=== PATIENT | male | born 1990 | race African-American/Black ===

== ENCOUNTER 2016-10-10 05:24 | Emergency (ER) | payer OTHER ==
[~2016-10-10] VITALS: Ht 177.8 cm; Wt 90.0 kg
[~2016-10-10 05:24] MED LIST: LITH450T PO; SERO200T PO
[2016-10-10 05:30] VITALS: BP 148/78; PULSE 98; RESP 18; TEMP 98; O2SAT 95
[2016-10-10] MEDS ORDERED: FLUO-1 PO (05:39)
[2016-10-10] MEDS ORDERED: TEGR200T PO (05:39)
[2016-10-10] MEDS ORDERED: RISP.25 PO (05:39)
--- NOTE | 2016-10-10 05:56 | PD ---
HPI Chief Complaint: Psychiatric Symptoms Time Seen by Provider: 05:49 Travel History International Travel<30 days: No Contact w/Intl Traveler<30days: No Traveled to known affect area: No History of Present Illness HPI Patient was under Hinojosa act for having homicidal ideations. Patient states the voices are telling him to kill someone. Patient denies any particular person or any particular plans. Patient denies any suicidal ideations at this time. Patient denies any medical complaints. Patient denies anything making symptoms better or worse. Denies any chest pain, shortness of breath, nausea, vomiting, abdominal pain, or fevers. PFSH Past Medical History Anxiety: Yes Psychiatric: Yes ?: Not Social History Alcohol Use: No Tobacco Use: Yes (COUPLE CIG DAILY ) Substance Use: Yes Allergies-Medications (Allergen,Severity, Reaction): Coded Allergies: Codeine (Verified Allergy, Unknown, 03/18/14) Per records from [facility]. Shellfish (Verified Allergy, Unknown, 03/18/14) Per records from [facility]. Reported Meds & Prescriptions Reported Meds & Active Scripts Active Reported Risperdal (Risperidone) 0.25 Mg Tab 0 PO DAILY Tegretol (Carbamazepine) 200 Mg Tab 0 PO BID Prozac (Fluoxetine HCl) 10 Mg Cap 0 PO DAILY Review of Systems Except as stated in HPI: all other systems reviewed are Neg Physical Exam Narrative GENERAL: Well-developed, well nourished, in no acute distress, and non-ill appearing. SKIN: Focused skin assessment warm and dry. HEAD: Atraumatic. Normocephalic. EYES: Pupils equal and round. EOMI. No scleral icterus. No injection or drainage. ENT: No nasal bleeding or discharge. Mucous membranes pink and moist. NECK: Trachea midline. No JVD. Supple. No nuclear rigidity. CARDIOVASCULAR: Regular rate and rhythm. No murmur appreciated. RESPIRATORY: No accessory muscle use. No respiratory distress. Clear to auscultation. Breath sounds equal bilaterally. MUSCULOSKELETAL: No obvious deformities. No clubbing. No cyanosis. No edema. Full range of motion. NEUROLOGICAL: Awake and alert. No obvious cranial nerve deficits. Motor grossly within normal limits. Normal speech. PSYCHIATRIC: Appropriate mood and affect; insight and judgment abnormal. Data Data Last Documented VS Vital Signs Date Time Temp Pulse Resp B/P Pulse Ox O2 Delivery O2 Flow Rate FiO2 10/10/16 05:30 98.0 98 18 148/78 95 MDM Medical Decision Making Medical Screen Exam Complete: Yes Emergency Medical Condition: Yes Differential Diagnosis Homicidal, suicidal, auditory hallucinations, visual hallucinations, schizophrenia, depression, other Narrative Course Patient was seen and examined. Patient is currently refusing all laboratory draws. Patient appears healthy 25-year-old male. Vital signs are stable. Patient medically cleared for further treatment and evaluation by psych. Final disposition per psych. Diagnosis Primary Impression: Medical clearance for psychiatric admission Condition: Stable Joao Wolff Oct 10, 2016 05:56
[2016-10-10 13:48] LABS: AMPHETAMINE, URINE NEG (NEG); BARBITURATES, URINE NEG (NEG); COCAINE, URINE POS (NEG)
[2016-10-10 17:58] VITALS: BP 116/64; PULSE 66; RESP 16; O2SAT 100
== END 2016-10-10 21:15 ==
LOC: NEPD 05:24 → NEPJ 21:15
DX: R45.850 Homicidal ideations (principal); F41.9 Anxiety disorder, unspecified; F17.200 Nicotine dependence, unspecified, uncomplicated; Z79.899 Other long term (current) drug therapy; Z88.5 Allergy status to narcotic agent
CPT/HCPCS: 80307; 99284

== ENCOUNTER 2016-10-18 01:35 | Emergency (ER) | payer OTHER ==
[~2016-10-18] VITALS: Ht 177.8 cm; Wt 78.0 kg
[~2016-10-18 01:35] MED LIST changes: +FLUO-1 PO; -LITH450T PO; +RISP.25 PO; -SERO200T PO; +TEGR200T PO
[2016-10-18] MEDS ORDERED: ZIPRASIDONE MESYLATE 20 MG VIAL IM ONE (02:00)
[2016-10-18] MEDS ORDERED: diphenhydrAMINE HCL 50 MG/ML VIAL IM ONE (02:00)
[2016-10-18 02:06] VITALS: BP 168/100; PULSE 91; RESP 18; TEMP 98; O2SAT 100
--- NOTE | 2016-10-18 03:12 | PD ---
HPI Chief Complaint: Psychiatric Symptoms Time Seen by Provider: 03:03 Travel History International Travel<30 days: No Contact w/Intl Traveler<30days: No Traveled to known affect area: No History of Present Illness HPI 25-year-old black male presents emergency department by the [facility] on a voluntary basis for psychological evaluation. The patient had called 911 and according to dispatch the patient was very disorganized and hard to understand. Please responded to the scene and when they encountered the patient. Told them he was feeling suicidal and he wanted to come to [place] to see the psychiatrist. This was told to me directly by the presenting please officer. The patient here initially states that he does not understand why he is here. He states that he has not done anything wrong. He is very reserved and did not want to answer any questions initially. The patient then goes on to state that he is not suicidal or homicidal. He states that there are people in his town that are out against him. He states that he is concerned someone is going to kill him. He also states that he is afraid that family members are paying people in town to hurt him. The patient states that these are not delusions and that these are really people out against him. The patient denies any drugs or alcohol. Patient denies any toxic ingestions. He denies any recent medical complaints. Review the medical records indicates he was just here a few days ago requesting psychological evaluation but it does not appear that he was actually seen by a psychiatrist due to there is no documentation. PFSH Past Medical History Narrative Medical History of substance abuse per the medical record Anxiety: Yes Psychiatric: Yes Tetanus Vaccination: Unknown Influenza Vaccination: No Past Surgical History Surgical History: No Previous Surgery Social History Alcohol Use: No Tobacco Use: Yes (COUPLE CIG DAILY ) Substance Use: Yes Allergies-Medications (Allergen,Severity, Reaction): Coded Allergies: Codeine (Verified Allergy, Unknown, 10/18/16) Per records from [facility]. Shellfish (Verified Allergy, Unknown, 10/18/16) Per records from [facility]. Reported Meds & Prescriptions Reported Meds & Active Scripts Active Reported Risperdal (Risperidone) 0.25 Mg Tab 0 PO DAILY Tegretol (Carbamazepine) 200 Mg Tab 0 PO BID Prozac (Fluoxetine HCl) 10 Mg Cap 0 PO DAILY Review of Systems Except as stated in HPI: all other systems reviewed are Neg Psychiatric: Positive: Disorder of Thought, No: Anxiety, Depression, Suicidal Ideations, Mood Disorder, Substance Abuse, Homicidal Ideation Physical Exam Narrative GENERAL: Well-nourished, well-developed patient. SKIN: Warm and dry. HEAD: Normocephalic and atraumatic. EYES: No scleral icterus. No injection or drainage. ENT: No nasal drainage noted. Mucous membranes pink. Airway patent. NECK: Supple, trachea midline. Moves head freely without obvious discomfort. CARDIOVASCULAR: Regular rate and rhythm without murmurs, gallops, or rubs. RESPIRATORY: Breath sounds equal bilaterally. No accessory muscle use. GASTROINTESTINAL: Abdomen soft, non-tender, nondistended. EXTREMITIES: No cyanosis or edema. BACK: Nontender without obvious deformity. No CVA tenderness. NEURO: Patient is alert and oriented. no sensorimotor deficits. Nonfocal. Normal speech. PSYCH: The patient is paranoid and delusional. Positive visual hallucinations. Data Data Last Documented VS Vital Signs Date Time Temp Pulse Resp B/P Pulse Ox O2 Delivery O2 Flow Rate FiO2 10/18/16 02:06 98.0 91 18 168/100 100 Orders Complete Blood Count With Diff (10/18/16 01:54) Comprehensive Metabolic Panel (10/18/16 01:54) Psych Screen (10/18/16 01:54) Drug Screen, Random Urine (10/18/16 01:54) Alcohol (Ethanol) (10/18/16 01:54) Salicylates (Aspirin) (10/18/16 01:54) Tylenol (Acetaminophen) (10/18/16 01:54) Ziprasidone Inj (Geodon Inj) (10/18/16 02:00) Diphenhydramine Inj (Benadryl Inj) (10/18/16 02:00) MDM Medical Decision Making Medical Screen Exam Complete: Yes Emergency Medical Condition: Yes Medical Record Reviewed: Yes Differential Diagnosis MDM: High Differential diagnoses: Schizophrenia, schizoaffective disorder, bipolar, anxiety, depression, adjustment reaction, mood disorder NOS, ODD, depressive disorder NOS, dementia, dementia with agitation, psychosis NOS, substance induced mood disorder, intermittent explosive disorder, Asperger syndrome, infection,electrolyte abnormality, malingering. Narrative Course Mental health screening discussed with the patient. Psychiatric screen ordered. The patient has refused laboratory testing. He states that he would like to see the psychiatrist. I discussed the patient's presenting complaint with the unarmed security officer who states that the patient stated that he was suicidal and allow the patient to come in voluntarily. The patient here is now refusing this. The patient does appear to be delusional and paranoid. An order for Geodon 10 mg and Benadryl 50 mg have been ordered if the patient becomes disruptive to care. I've also informed this medical staff that the patient may stay voluntarily but if he attempts to leave and any time that a Hinojosa act will be written to ensure his safety. The patient is paranoid and unreliable. I suspect there may be a drug component to this with the patient denies. He is refusing any drug testing at this time. There is evidence that the patient has been here for psychiatric evaluation recently but I do not see any documentation by the psychiatrist. This is medical clearance for psychiatric admission Diagnosis Primary Impression: Medical clearance for psychiatric admission Condition: Bill Barber Oct 18, 2016 03:12
[2016-10-18 06:20] VITALS: BP 135/79; PULSE 94; RESP 18
--- NOTE | 2016-10-18 09:10 | PD ---
History of Present Illness Chief Complaint: Psychiatric Symptoms Time Seen by Provider: 09:00 Travel History International Travel<30 Days: No Contact w/Intl Traveler<30days: No Known affected area: No Legal Status Legal Status: Voluntary History of Present Illness: 25-year-old male presenting voluntarily after reportedly calling 911. Patient was allegedly described as suicidal. At this time he denies any suicidal or homicidal ideation, plan or intent. Patient has also been described by the medicine ED attending as showing paranoia. Indeed, this physician spoke with the patient's nurse who also describes him as paranoid. Apparently the patient declines any medication, declines any laboratory studies for blood work and declines any urinalysis. When interviewed by this physician, the patient does make vague references to other people on the street who are against him but he verbally denies being paranoid. This physician notes in his history, he was positive for cocaine approximately 2 weeks ago and he was hospitalized at [facility]. He also has a history of incarceration. At the present time, the patient is cognitively intact and verbally yahir for safety. He appears competent to do so. Therefore, this physician does not feel he meets criteria for Hinojosa act. He states his mother lives locally and feeds him. He is requesting to use the telephone in order to make contact with relatives to support him. PFSH Past Medical History Anxiety: Yes Psychiatric: Yes Tetanus Vaccination: Unknown Influenza Vaccination: No Past Surgical History Surgical History: No Previous Surgery Psychiatric History Psychiatric History Hx Psychiatric Treatment: HX OF [facility] FOR PSYCHOTIC/DISRUPTIVE BEHAVIOR. History of Inpatient Treatment: Yes Guns or firearms in home: No Social History Hx Alcohol Use: No Hx Tobacco Use: Yes (COUPLE CIG DAILY ) Hx Substance Use: Yes Substance Use Type: Alcohol, Crack, Marijuana, Ecstasy, Nicotine/Cigarettes, Prescription Medications, Benzos (Valium,Xanax), Cocaine, Synth Opiates-Pain Pills Other Substances Used: HX OF PSA Hx of Substance Use Treatment: No Allergies-Medications (Allergen,Severity, Reaction): Coded Allergies: Codeine (Verified Allergy, Unknown, 10/18/16) Per records from [facility]. Shellfish (Verified Allergy, Unknown, 10/18/16) Per records from [facility]. Reported Meds & Prescriptions Reported Meds & Active Scripts Active Reported Risperdal (Risperidone) 0.25 Mg Tab 0 PO DAILY Tegretol (Carbamazepine) 200 Mg Tab 0 PO BID Prozac (Fluoxetine HCl) 10 Mg Cap 0 PO DAILY Review of Systems Except as stated in HPI: all other systems reviewed are Neg Exam Alert: Yes [place]: Person, Place, Date, Situation Mood: Calm Affect: Restricted Speech: Clear, Logical Eye Contact: Indirect Memory Intact: Immediate, Recent, Remote Delusions: Yes Delusion Type: Paranoid Insight/Judgement Adequate MDM Medical Decision Making Medical Record Reviewed: Yes Assessment/Plan 25-year-old male with history of psychotic illness, presently showing evidence of paranoia but repeatedly denied having any suicidal or homicidal ideation, plan or intent. Patient has plan to care for himself and reports family members who are willing to assist him. Therefore, despite his psychosis, this physician does not feel the patient qualifies for Hinojosa act or inpatient psychiatric hospitalization. Therefore, per the patient's request, he is being discharged to his mother's home. Orders Complete Blood Count With Diff (10/18/16 01:54) Comprehensive Metabolic Panel (10/18/16 01:54) Psych Screen (10/18/16 01:54) Drug Screen, Random Urine (10/18/16 01:54) Alcohol (Ethanol) (10/18/16 01:54) Salicylates (Aspirin) (10/18/16 01:54) Tylenol (Acetaminophen) (10/18/16 01:54) Ziprasidone Inj (Geodon Inj) (10/18/16 02:00) Diphenhydramine Inj (Benadryl Inj) (10/18/16 02:00) Diet Regular Basic (10/18/16 Breakfast) Diet Regular Basic (10/18/16 Lunch) Results Vital Signs Date Time Temp Pulse Resp B/P Pulse Ox O2 Delivery O2 Flow Rate FiO2 10/18/16 06:20 94 18 135/79 10/18/16 02:06 98.0 91 18 168/100 100 Diagnosis Primary Impression: Chronic paranoid schizophrenia Condition: Stable Nick Lopez MD Oct 18, 2016 09:10
[2016-10-18 09:53] VITALS: BP 135/79; PULSE 94; RESP 18
== END 2016-10-18 10:51 | disposition home or self-care (01) ==
LOC: NEPJ 01:35
DX: F20.0 Paranoid schizophrenia (principal); F41.9 Anxiety disorder, unspecified; F17.210 Nicotine dependence, cigarettes, uncomplicated; Z88.5 Allergy status to narcotic agent; Z79.899 Other long term (current) drug therapy
CPT/HCPCS: 99284

== ENCOUNTER 2016-11-15 05:16 | Inpatient (IN) | payer SELFPAY ==
[~2016-11-15] VITALS: Ht 177.8 cm; Wt 84.6 kg
[2016-11-15 05:17] VITALS: BP 144/83; PULSE 114; RESP 18; TEMP 98.7; O2SAT 97
--- NOTE | 2016-11-15 05:37 | PD ---
HPI Chief Complaint: Suicide Ideation/Attempt Time Seen by Provider: 05:34 Travel History International Travel<30 days: No Contact w/Intl Traveler<30days: No Traveled to known affect area: No History of Present Illness HPI This patient presents voluntarily requesting psychiatric evaluation. The patient reports that he has been having hallucinations and paranoia for the past 5 months. He reports that symptoms started shortly after being released from [facility]. He reports that he is currently homeless and this morning he was walking the streets and feeling paranoid so he flagged down a armored vehicle officer who brought him here. He does not currently see a psychiatrist. He reports that he believes he is diagnosed with PTSD and bipolar disorder however it appears the patient was recently seen here with a diagnosis of chronic paranoid schizophrenia. The patient versus occasional marijuana use. He denies suicidal or homicidal ideation but reports that he does not want to live this way anymore. He has no other complaints at this time. PFSH Past Medical History Bipolar Disorder: Yes Anxiety: Yes Diminished Hearing: No Psychiatric: Yes Schizophrenia: Yes Tetanus Vaccination: < 5 Years Influenza Vaccination: Yes Past Surgical History Surgical History: No Previous Surgery Social History Alcohol Use: Yes Tobacco Use: Yes (COUPLE CIG DAILY ) Substance Use: Yes (Marijuana) Allergies-Medications (Allergen,Severity, Reaction): Coded Allergies: codeine (Unverified Allergy, Unknown, 11/15/16) Per records from [facility]. shellfish derived (Unverified Allergy, Unknown, 11/15/16) Per records from [facility]. Reported Meds & Prescriptions Reported Meds & Active Scripts Active Reported Risperdal (Risperidone) 0.25 Mg Tab 0 PO DAILY Tegretol (Carbamazepine) 200 Mg Tab 0 PO BID Prozac (Fluoxetine HCl) 10 Mg Cap 0 PO DAILY Review of Systems Except as stated in HPI: all other systems reviewed are Neg Physical Exam Narrative GENERAL: Well-developed well-nourished male in no acute distress. Somewhat anxious on initial examination. SKIN: Warm and dry. HEAD: Atraumatic. Normocephalic. EYES: Pupils equal and round. No scleral icterus. No injection or drainage. ENT: No nasal bleeding or discharge. Mucous membranes pink and moist. NECK: Trachea midline. No JVD. CARDIOVASCULAR: Regular rate and rhythm. No murmur appreciated. RESPIRATORY: No accessory muscle use. Clear to auscultation. Breath sounds equal bilaterally. GASTROINTESTINAL: Abdomen soft, non-tender, nondistended. Hepatic and splenic margins not palpable. MUSCULOSKELETAL: No obvious deformities. No clubbing. No cyanosis. No edema. NEUROLOGICAL: Awake and alert. No obvious cranial nerve deficits. Motor grossly within normal limits. Normal speech. PSYCHIATRIC: Anxious. Insight and judgment appear fair. Data Data Last Documented VS Vital Signs Date Time Temp Pulse Resp B/P (MAP) Pulse Ox O2 Delivery O2 Flow Rate FiO2 11/15/16 05:17 98.7 114 18 144/83 (103) 97 Room Air Orders Orders Complete Blood Count With Diff (11/15/16 05:26) Comprehensive Metabolic Panel (11/15/16 05:26) Psych Screen (11/15/16 05:26) Drug Screen, Random Urine (11/15/16 05:26) Alcohol (Ethanol) (11/15/16 05:26) Labs Laboratory Tests Test 11/15/16 05:45 White Blood Count 9.3 TH/MM3 Red Blood Count 5.28 MIL/MM3 Hemoglobin 16.4 GM/DL Hematocrit 48.8 % Mean Corpuscular Volume 92.4 FL Mean Corpuscular Hemoglobin 31.1 PG Mean Corpuscular Hemoglobin Concent 33.6 % Red Cell Distribution Width 14.2 % Platelet Count 209 TH/MM3 Mean Platelet Volume 8.1 FL Neutrophils (%) (Auto) 77.4 % Lymphocytes (%) (Auto) 14.0 % Monocytes (%) (Auto) 8.1 % Eosinophils (%) (Auto) 0.1 % Basophils (%) (Auto) 0.4 % Neutrophils # (Auto) 7.2 TH/MM3 Lymphocytes # (Auto) 1.3 TH/MM3 Monocytes # (Auto) 0.8 TH/MM3 Eosinophils # (Auto) 0.0 TH/MM3 Basophils # (Auto) 0.0 TH/MM3 CBC Comment DIFF FINAL Differential Comment Blood Urea Nitrogen 10 MG/DL Creatinine 1.40 MG/DL Random Glucose 112 MG/DL Total Protein 7.5 GM/DL Albumin 4.1 GM/DL Calcium Level 8.9 MG/DL Alkaline Phosphatase 78 U/L Aspartate Amino Transf (AST/SGOT) 45 U/L Alanine Aminotransferase (ALT/SGPT) 49 U/L Total Bilirubin 0.5 MG/DL Sodium Level 139 MEQ/L Potassium Level 3.2 MEQ/L Chloride Level 102 MEQ/L Carbon Dioxide Level 30.0 MEQ/L Anion Gap 7 MEQ/L Estimat Glomerular Filtration Rate 73 ML/MIN Ethyl Alcohol Level LESS THAN 3 MG/DL MDM Medical Decision Making Medical Screen Exam Complete: Yes Emergency Medical Condition: Yes Medical Record Reviewed: Yes Differential Diagnosis Paranoia, schizophrenia, acute psychosis, substance induced mood disorder, adjustment reaction, homelessness Narrative Course 26-year-old male presents voluntarily requesting psychiatric evaluation for paranoia. Mental health screening discussed with the patient. Psychiatric screen ordered. Lab work notable for potassium 3.2, creatinine 1.4, AST 45. 40 mEq of oral potassium chloride has been ordered. The patient is medically cleared for psychiatric disposition. Diagnosis Primary Impression: Paranoia Vinny Lyn Nov 15, 2016 05:37
[2016-11-15 05:58] LABS: AUTOMATED NEUTROPHIL # 7.2 TH/MM3 (1.8-7.7); BASOPHIL % 0.4 % (0.0-2.0); EOSINOPHIL % 0.1 % (0.0-4.0); HEMATOCRIT 48.8 % (39.0-51.0); HEMO FLAGS DIFF FINAL; LYMPHOCYTE # 1.3 TH/MM3 (1.0-4.8); MEAN CELL VOLUME 92.4 FL (80.0-100.0); MEAN CORPUSCULAR HEMOGLOBIN 31.1 PG (27.0-34.0); MEAN CORPUSCULAR HGB CONC 33.6 % (32.0-36.0); MONO % 8.1 % (0.0-8.0); NEUT % 77.4 % (16.0-70.0); PLATELET COUNT 209 TH/MM3 (150-450); RED BLOOD COUNT 5.28 MIL/MM3 (4.50-5.90); RED CELL DISTRIBUTION WIDTH 14.2 % (11.6-17.2); WHITE BLOOD COUNT 9.3 TH/MM3 (4.0-11.0)
[2016-11-15 06:13] LABS: ALT (GPT) 49 U/L (12-78); ANION GAP 7 MEQ/L (5-15); AST (GOT) 45 U/L (15-37); BLOOD UREA NITROGEN 10 MG/DL (7-18); CHLORIDE 102 MEQ/L (98-107); GLOMERULAR FILTRATION RATE 73 ML/MIN (>89); POTASSIUM 3.2 MEQ/L (3.5-5.1); SODIUM (NA) 139 MEQ/L (136-145)
[2016-11-15 06:15] LABS: ALKALINE PHOSPHATASE 78 U/L (45-117); TOTAL BILIRUBIN ADULT 0.5 MG/DL (0.2-1.0)
[2016-11-15 06:21] LABS: ALCOHOL LESS THAN 3 MG/DL (0-5)
[2016-11-15] MEDS ORDERED: POTASSIUM CHLORIDE 20 MEQ CONTROLLED RELEASE TAB PO ONE (06:30)
[2016-11-15 07:00] VITALS: BP 130/77; PULSE 89; RESP 17; TEMP 97.8; O2SAT 99
[2016-11-15 12:00] VITALS: BP 133/77; PULSE 96; RESP 17; TEMP 97.8; O2SAT 99
[2016-11-15] MEDS ORDERED: LORazepam 2 MG/ML VIAL IM PRN ×2 (13:30→15:00)
--- NOTE | 2016-11-15 14:04 | HHI.HP ---
Provisional Diagnosis Admission Date Nov 15, 2016 at 13:26 [place] I. Chronic paranoid schizophrenia Certification of Person's Competence To Provide Express and Informed Consent I have personally examined Behzad Anne , a person being served at [facility] on, Nov 15, 2016 13:59. Express and informed consent means consent voluntarily given in writing, by a competent person, after sufficient explanation and disclosure of the subject matter involved to enable the person to make a knowing and willful decision without any element of force, fraud, deceit, duress, or other form of constraint or coercion. This person is 18 years of age or older, is not now known to be incompetent to consent to treatment with a guardian advocate, and does not have a health care surrogate or proxy currently making medical treatment decisions. I have found this person to be one of the following: [x] Competent to provide express and informed consent, as defined above, for voluntary admission to this facility and is competent to provide express and informed consent for treatment. He/she has the consistent capacity to make well reasoned, willful, and knowing decisions concerning his or her medical or mental health treatment. The person fully and consistently understands the purpose of the admission for examination/placement and is fully capable of personally exercising all rights assured [place] Incompetent to provide express and informed consent to voluntary admission, and this is incompetent to provide express and informed consent to treatment. The person must be transferred to involuntary status and a petition for a guardian advocate filed with the Circuit Court. [] Refusing to provide express and informed consent to voluntary admission but is competent to provide express and informed consent for treatment. The person must be discharged or transferred to involuntary status. Form shall be completed within 24 hours of a person's arrival at the receiving facility and filed in the clinical record of each person: 1. Admitted on a voluntary basis 2. Permitted to provide express and informed consent to his/her own treatment 3. Allowed to transfer from involuntary to voluntary status 4. Prior to permitting a person to consent to his or her own treatment after having been previously found incompetent to consent to treatment. History of Present Illness Capacity: Has Capacity HPI 26-year-old male who presents voluntarily with psychotic symptoms and suicidal ideation and a history of noncompliance with psychotropic medicine. Patient is extremely guarded and sent this physician's nurse as well as the [facility] liaison, Oneil, out of the room before he would speak. He admits to approximately 5 months of psychotic symptoms, increasing in frequency and severity. He states this began after he was released from prison. While he was incarcerated, he reports he received his medications on a daily basis and that he did much better. He is actually asking for an increase in medicines right now because of his disturbing symptoms. He describes auditory hallucinations that "say all kinds of things" but are often derogatory. The patient is often paranoid and feels others are trying to harm him so he avoids people, especially at night. He reports looking around him more behind him frequently throughout the day because he does not know who is trying to harm him or how it will occur but he is convinced that someone is out to "get him". He describes suicidal ideation although he has no current plan. He states "I can't live like this". He is currently homeless. Review of Systems Except as stated in HPI: all other systems reviewed are Neg Past Psych History Psychological trauma history Denied for psychological trauma. Violence risk - others (6 mos) High Violence risk - self (6 mos) High Substance Abuse History Drugs/Alcohol past 12 months Patient positive for cocaine and cannabis. Past Family Social History Coded Allergies: codeine (Unverified Allergy, Unknown, 11/15/16) Per records from [facility]. shellfish derived (Unverified Allergy, Unknown, 11/15/16) Per records from [facility]. Reported Medications Risperidone (Risperdal) 0.25 Mg Tab, 2 MG PO HS, #30 TAB 0 Refills 10/10/16 Carbamazepine (Tegretol) 200 Mg Tab, 200 PO BID, #60 TAB 0 Refills 10/10/16 Fluoxetine (Prozac) 10 Mg Cap, 20 MG PO DAILY, #30 CAP 0 Refills 10/10/16 Current Medications Medications (Trade) Dose Ordered Sig/Jorge Route Start Time Stop Time Status Last Admin (Ativan) 1 mg Q6H PRN PO 11/15/16 13:30 UNV (Ativan Inj) 1 mg Q6H PRN IM 11/15/16 13:30 UNV (Ativan) 0.5 mg Q12H PRN PO 11/15/16 13:30 UNV (Ativan Inj) 0.5 mg Q12H PRN IM 11/15/16 13:30 UNV (Benadryl) 50 mg Q6H PRN PO 11/15/16 13:30 UNV (Benadryl Inj) 50 mg Q6H PRN IM 11/15/16 13:30 UNV (Tylenol) 650 mg Q4H PRN PO 11/15/16 13:30 UNV (Milk Of Magnesia Liq) 30 ml DAILY PRN PO 11/15/16 13:30 UNV (Mag-Al Plus Susp Liq) 30 ml Q6H PRN PO 11/15/16 13:30 UNV (Desyrel) 50 mg HS PRN PO 11/15/16 13:30 UNV (Atarax) 50 mg Q6H PRN PO 11/15/16 13:30 UNV (Abilify) 5 mg HS PO 11/15/16 21:00 UNV (TEGretol) 200 mg BID PO 11/15/16 13:30 UNV (risperDAL) 2 mg BID PO 11/15/16 13:30 UNV Family History Patient refused Social History Currently homeless. Without employment despite his representations otherwise. Uses cannabis and cocaine. Mother contacted and she is supportive. Patient's Strengths (min. 2) Young and resilient. Physical Exam GENERAL: SKIN: Warm and dry. HEAD: Normocephalic. EYES: No scleral icterus. No injection or drainage. NECK: Supple, trachea midline. No JVD or lymphadenopathy. CARDIOVASCULAR: Regular rate and rhythm without murmurs, gallops, or rubs. RESPIRATORY: Breath sounds equal bilaterally. No accessory muscle use. GASTROINTESTINAL: Abdomen soft, non-tender, nondistended. MUSCULOSKELETAL: No cyanosis, or edema. BACK: Nontender without obvious deformity. No CVA tenderness. Vital Signs Vital Signs Date Time Temp Pulse Resp B/P (MAP) Pulse Ox O2 Delivery O2 Flow Rate FiO2 11/15/16 12:00 97.8 96 17 133/77 (95) 99 Room Air I/O 11/15/16 11/15/16 11/16/16 08:00 16:00 00:00 Intake Total 200 ml 600 ml Balance 200 ml 600 ml Lab Results Test 11/15/16 05:45 11/15/16 06:05 White Blood Count 9.3 TH/MM3 Red Blood Count 5.28 MIL/MM3 Hemoglobin 16.4 GM/DL Hematocrit 48.8 % Mean Corpuscular Volume 92.4 FL Mean Corpuscular Hemoglobin 31.1 PG Mean Corpuscular Hemoglobin Concent 33.6 % Red Cell Distribution Width 14.2 % Platelet Count 209 TH/MM3 Mean Platelet Volume 8.1 FL Neutrophils (%) (Auto) 77.4 % Lymphocytes (%) (Auto) 14.0 % Monocytes (%) (Auto) 8.1 % Eosinophils (%) (Auto) 0.1 % Basophils (%) (Auto) 0.4 % Neutrophils # (Auto) 7.2 TH/MM3 Lymphocytes # (Auto) 1.3 TH/MM3 Monocytes # (Auto) 0.8 TH/MM3 Eosinophils # (Auto) 0.0 TH/MM3 Basophils # (Auto) 0.0 TH/MM3 CBC Comment DIFF FINAL Differential Comment Blood Urea Nitrogen 10 MG/DL Creatinine 1.40 MG/DL Random Glucose 112 MG/DL Total Protein 7.5 GM/DL Albumin 4.1 GM/DL Calcium Level 8.9 MG/DL Alkaline Phosphatase 78 U/L Aspartate Amino Transf (AST/SGOT) 45 U/L Alanine Aminotransferase (ALT/SGPT) 49 U/L Total Bilirubin 0.5 MG/DL Sodium Level 139 MEQ/L Potassium Level 3.2 MEQ/L Chloride Level 102 MEQ/L Carbon Dioxide Level 30.0 MEQ/L Anion Gap 7 MEQ/L Estimat Glomerular Filtration Rate 73 ML/MIN Ethyl Alcohol Level LESS THAN 3 MG/DL Urine Opiates Screen NEG Urine Barbiturates Screen NEG Urine Amphetamines Screen NEG Urine Benzodiazepines Screen NEG Urine Cocaine Screen POS Urine Cannabinoids Screen POS Mental Status Examination Speech: Unremarkable, Tangential Orientation: x3 Memory: Unremarkable Thought Process: Organized, Loose Association Thought Content: Paranoid Hallucination Type: Auditory, Visual Attention and Concentration: Easily Distracted Suicidal Ideation: Yes Previous Suicide Attempts: No Homicidal Ideation: No Previous Homicide Attempts: No Insight: Fair Judgment: Impulsive Affect: Irritable Affect if Inappropriate: Labile Mood: Irritable Motor Activity: Normal gait Assessment & Plan Problem List: (1) Chronic paranoid schizophrenia ICD Codes: F20.0 - Paranoid schizophrenia Status: Acute Assessment & Plan Estimated LOS: days. Patient is expressing thoughts of paranoid delusions, suicidal ideation, auditory hallucinations and visual hallucinations. He has a history of chronic schizophrenia, paranoid type and has been off his medicines for months. He is easily agitated and has markedly impaired judgment and insight. He is being evaluated for further treatment on an inpatient basis. This physician is ordering a CBC and comprehensive metabolic panel to determine if any infectious process or metabolic process is causing or contributing to his psychosis. He will also have levels of thyroid stimulating hormone, vitamin B-12 and vitamin D have evaluated to determine if any deficiencies in these areas are causing or contributing to his psychosis. This physician spoke with the patient's mother regarding her inability to care for him. She too would like to see him stabilized. When approached with this, the patient became upset and required Hino[place] act for hospitalization. As he became further upset he also required intramuscular Geodon, Benadryl and Ativan. A second opinion will be sought regarding his need for ongoing civil commitment. He will also undergo an EKG to determine his cardiac conduction in the eventuality of antipsychotic medications. This physician spoke to the nurse regarding the patient's recent and current behavior. Finally, case management will be involved to obtain further information and assist with discharge planning. Nick Lopez MD Nov 15, 2016 14:04
[2016-11-15 14:50] VITALS: BP 130/78; TEMP 97.8
[2016-11-15] MEDS ORDERED: diphenhydrAMINE HCL 50 MG/ML VIAL IM ONE (15:00)
[2016-11-15] MEDS ORDERED: hydrOXYzine HCL 50 MG TAB PO PRN (15:00)
[2016-11-15] MEDS ORDERED: LORazepam 0.5 MG TAB PO PRN (15:00)
[2016-11-15] MEDS ORDERED: ZIPRASIDONE MESYLATE 20 MG VIAL IM ONE (15:00)
[2016-11-15] MEDS ORDERED: ACETAMINOPHEN 325 MG TAB PO PRN (15:00)
[2016-11-15] MEDS ORDERED: ALUMINUM/MAGNESIUM/SIMETH 30 ML CUP PO PRN (15:00)
[2016-11-15] MEDS ORDERED: diphenhydrAMINE HCL 50 MG CAP PO PRN (15:00)
[2016-11-15] MEDS ORDERED: traZODone HCL 50 MG TAB PO PRN (15:00)
[2016-11-15] MEDS ORDERED: MAGNESIUM HYDROXIDE SUSP 30 ML CUP PO PRN (15:00)
[2016-11-15] MEDS ORDERED: LORazepam 1 MG TAB PO PRN (15:00)
[2016-11-15] MEDS ORDERED: diphenhydrAMINE HCL 50 MG/ML VIAL IM PRN (15:00)
[2016-11-15] MEDS ORDERED: LORazepam 2 MG/ML VIAL IM ONE (15:00)
[2016-11-15 15:18] VITALS: BP 119/56; PULSE 75; RESP 17; TEMP 95.2
[2016-11-15] MEDS: carBAMazepine 200 MG TAB PO SCH (20:57)
[2016-11-15] MEDS: risperiDONE 1 MG TAB PO SCH (20:57)
[2016-11-15] MEDS ORDERED: ARIPiprazole 5 MG TAB PO SCH (21:00)
[2016-11-16 06:05] VITALS: BP 117/67; PULSE 76; RESP 18; TEMP 98.1; O2SAT 98
[2016-11-16] MEDS: risperiDONE 1 MG TAB PO SCH ×2 (08:13→21:00)
[2016-11-16] MEDS: carBAMazepine 200 MG TAB PO SCH ×2 (08:13→21:00)
--- NOTE | 2016-11-16 10:07 | HHI.PYPN ---
Subjective Remarks Patient seen and examined with nurse. Chart reviewed. I note the patient was most recently admitted here [place] [address] Kelly although he did not have a primary psychotic disorder diagnosis at that time. Case discussed with nursing staff. On my examination today, the patient remains quite guarded and suspicious. He endorses intermittent auditory hallucinations of "footsteps" and occasional visual hallucinations of "shadows." Mood is described as okay although affect is fairly dysphoric. Sleep and appetite fair. Says that he was worried about "laser beams" prior to coming into the hospital and says that as a result he had "been running all night." Tells me that he follows at [facility] on an outpatient basis and takes Risperdal and CBZ. Most recent psychiatric admission was a few weeks ago. He does endorse a history of suicide attempts in the past. Denies any family history of mental illness. Denies any side effects from current medications. No physical complaints. Denies any medical issues and takes no general medical meds on an outpatient basis. With patient's permission, tried to reach out to his mother over the phone. I left a Yones voicemail for her requesting a call back. Review of Systems ROS Limitations: Psychotic, Poor Historian Except as stated in HPI: all other systems reviewed are Neg Objective Alert: Yes [place]: Person, Place, Date Mood: Other ("okay") Affect: Restricted Memory Intact: Comment (intake) Hallucinations: Other (As above. Appears int stim. No CAH.) Delusions: Yes Delusion Type: Paranoid Suicidal: Ideation (No SI) Homicidal: Ideation (No HI) Insight/Judgment Poor Remarks No motor abnormalities noted. Thought processes linear. Grooming and hygiene fair. Speech terse but otherwise within normal limits for rate, tone and volume. Labs Labs reviewed. Hypokalemia noted in this was repleted in the ED. GFR decreased , suspect he is dry and will encourage fluids. Toxicology results noted. Vitals/IOs Vital Signs Date Time Temp Pulse Resp B/P (MAP) Pulse Ox O2 Delivery O2 Flow Rate FiO2 11/16/16 06:05 98.1 76 18 117/67 (84) 98 11/15/16 12:00 Room Air Assessment & Plan Problem List: (1) Chronic paranoid schizophrenia ICD Codes: F20.0 - Paranoid schizophrenia Status: Acute (2) Polysubstance abuse ICD Codes: F19.10 - Other psychoactive substance abuse, uncomplicated Assessment & Plan Discontinue Abilify. Plan to titrate Risperdal over the weekend to target psychosis. Could consider long-acting injectable antipsychotic. Continue carbamazepine as ordered with plans to check a level after the weekend. Follow- up laboratories and EKG ordered by Dr. Lopez. Add Geodon PRN agitation as the patient remains quite psychotic and unpredictable. It does not appear that Dr. Lopez initiated a petition for involuntary psychiatric hospitalization. I have initiated a petition for involuntary psychiatric hospitalization and consulted for a second opinion. I will additionally request a healthcare surrogate and guardian advocate. Continue to monitor on the high acuity unit. Continue other medications and care as ordered. Justification for Cont. Inpt. Medication changes and process. Impairment in reality construction. High risk for decompensation and less restrictive environment. Discharge Planning Pending psychiatric stabilization. Request HC Surrog/Guard Advoc?: Yes Berry Lou MD Nov 16, 2016 10:07
[2016-11-16] MEDS ORDERED: ZIPRASIDONE MESYLATE 20 MG VIAL IM PRN (10:45)
[2016-11-16 11:24] LABS: AUTOMATED NEUTROPHIL # 4.4 TH/MM3 (1.8-7.7); BASOPHIL % 0.4 % (0.0-2.0); EOSINOPHIL # 0.1 TH/MM3 (0-0.4); EOSINOPHIL % 1.2 % (0.0-4.0); HEMATOCRIT 51.2 % (39.0-51.0); HEMO FLAGS DIFF FINAL; LYMPH % 18.8 % (9.0-44.0); LYMPHOCYTE # 1.2 TH/MM3 (1.0-4.8); MEAN CELL VOLUME 93.8 FL (80.0-100.0); MEAN CORPUSCULAR HEMOGLOBIN 31.5 PG (27.0-34.0); MEAN CORPUSCULAR HGB CONC 33.6 % (32.0-36.0); MONO % 8.5 % (0.0-8.0); NEUT % 71.1 % (16.0-70.0); PLATELET COUNT 181 TH/MM3 (150-450); RED BLOOD COUNT 5.46 MIL/MM3 (4.50-5.90); RED CELL DISTRIBUTION WIDTH 14.3 % (11.6-17.2); WHITE BLOOD COUNT 6.2 TH/MM3 (4.0-11.0)
[2016-11-16 11:48] LABS: ANION GAP 9 MEQ/L (5-15); AST (GOT) 58 U/L (15-37); BICARBONATE 25.7 MEQ/L (21.0-32.0); BLOOD UREA NITROGEN 12 MG/DL (7-18); CHLORIDE 105 MEQ/L (98-107); GLOMERULAR FILTRATION RATE 77 ML/MIN (>89); SODIUM (NA) 140 MEQ/L (136-145)
[2016-11-16 12:33] LABS: HEMOGLOBIN A1a 1.1 %; HEMOGLOBIN A1b 1.7 %; HEMOGLOBIN Ao 85.1 %; HEMOGLOBIN LA1C 2.1 %; HEMOGLOBIN P3 3.7 %
[2016-11-16 12:40] LABS: ALKALINE PHOSPHATASE 75 U/L (45-117); ALT (GPT) 45 U/L (12-78); HDL CHOLESTEROL 54.4 MG/DL (40.0-60.0); LDL CHOLESTEROL 80 MG/DL (0-99); TOTAL BILIRUBIN ADULT 0.6 MG/DL (0.2-1.0)
--- NOTE | 2016-11-16 14:18 | PD.PSY.CON ---
Provisional Diagnosis Admission Date Nov 15, 2016 at 13:26 [place] I. Chronic paranoid schizophrenia History of Present Illness Service Psychiatry Consult Requested By Reason for Consult Second opinion Primary Care Physician No Primary Care Physician HPI 26-year-old male who presents voluntarily with psychotic symptoms and suicidal ideation and a history of noncompliance with psychotropic medicine. Patient is extremely guarded and sent this physician's nurse as well as the [facility] liaisonOneil, out of the room before he would speak. He admits to approximately 5 months of psychotic symptoms, increasing in frequency and severity. He states this began after he was [facility]. While he was incarcerated, he reports he received his medications on a daily basis and that he did much better. He is actually asking for an increase in medicines right now because of his disturbing symptoms. He describes auditory hallucinations that "say all kinds of things" but are often derogatory. The patient is often paranoid and feels others are trying to harm him so he avoids people, especially at night. He reports looking around him more behind him frequently throughout the day because he does not know who is trying to harm him or how it will occur but he is convinced that someone is out to "get him". He describes suicidal ideation although he has no current plan. He states "I can't live like this". He is currently homeless. [facility] [address] [facility] for [facility] opinion. Patient states that he has been increasingly hearing voices and seeing things. Patient says that "voices are loud and I don't understand what they tell me, but they're very annoying". Patient also reports seeing people following him. Patient does not feel safe in the street "because I feel like everybody want to hurt me and I want to hurt them". He declined to talk about drug use. Patient clarifies that he is willing to take medications in order to treat his psychosis. Review of Systems Constitutional: DENIES: Diaphoretic episodes, Fatigue, Fever, Weight gain, Weight loss, Chills, Dizziness, Change in appetite, Night Sweats Endocrine: DENIES: Heat/cold intolerance, Polydipsia, Polyuria, Polyphagia Eyes: DENIES: Blurred vision, Diplopia, Eye inflammation, Eye pain, Vision loss , Photosensitivity, Double Vision Respiratory: DENIES: Apneas, Cough, Snoring, Wheezing, Hemoptysis, Sputum production, Shortness of breath Gastrointestinal: DENIES: Abdominal pain, Black stools, Bloody stools, Constipation, Diarrhea, Nausea, Vomiting, Difficulty Swallowing, Anorexia Genitourinary: DENIES: Sexual dysfunction, Urinary frequency, Urinary incontinence, Urgency, Hematuria, Dysuria, Nocturia, Penile Discharge, Testicular Pain, Testicular Swelling Musculoskeletal: DENIES: Joint pain, Muscle aches, Stiffness, Joint Swelling, Back pain, Neck pain Integumentary: DENIES: Abnormal pigmentation, Nail changes, Pruritus, Rash Hematologic/lymphatic: DENIES: Bruising, Lymphadenopathy Immunologic/allergic: DENIES: Eczema, Urticaria Neurologic: DENIES: Abnormal gait, Headache, Localized weakness, Paresthesias, Seizures, Speech Problems, Tremor, Poor Balance Psychiatric: COMPLAINS OF: Hallucinations, Delusions, DENIES: Anxiety, Confusion, Mood changes, Depression, Agitation, Suicidal Ideation, Homicidal Ideation Past Family Social History Coded Allergies: codeine (Unverified Allergy, Unknown, 11/15/16) Per records from [facility]. shellfish derived (Unverified Allergy, Unknown, 11/15/16) Per records from [facility]. Reported Medications Risperidone (Risperdal) 0.25 Mg Tab, 2 MG PO HS, #30 TAB 0 Refills 10/10/16 Carbamazepine (Tegretol) 200 Mg Tab, 200 PO BID, #60 TAB 0 Refills 10/10/16 Fluoxetine (Prozac) 10 Mg Cap, 20 MG PO DAILY, #30 CAP 0 Refills 10/10/16 Current Medications Medications (Trade) Dose Ordered Sig/Jorge Route Start Time Stop Time Status Last Admin (Ativan) 1 mg Q6H PRN PO 11/15/16 15:00 (Ativan Inj) 1 mg Q6H PRN IM 11/15/16 15:00 (Benadryl) 50 mg Q6H PRN PO 11/15/16 15:00 (Benadryl Inj) 50 mg Q6H PRN IM 11/15/16 15:00 (Tylenol) 650 mg Q4H PRN PO 11/15/16 15:00 (Milk Of Magnesia Liq) 30 ml DAILY PRN PO 11/15/16 15:00 (Mag-Al Plus Susp Liq) 30 ml Q6H PRN PO 11/15/16 15:00 (Desyrel) 50 mg HS PRN PO 11/15/16 15:00 (Atarax) 50 mg Q6H PRN PO 11/15/16 15:00 (TEGretol) 200 mg BID PO 11/15/16 15:00 11/16/16 08:13 (risperDAL) 2 mg Taper BID PO 11/16/16 21:00 11/27/16 20:59 (Geodon Inj) 20 mg BID PRN IM 11/16/16 10:45 Patient's Strengths (min. 2) Young and resilient. Physical Exam Vital Signs Vital Signs Date Time Temp Pulse Resp B/P (MAP) Pulse Ox O2 Delivery O2 Flow Rate FiO2 11/16/16 06:05 98.1 76 18 117/67 (84) 98 11/15/16 12:00 Room Air Lab Results Test 11/16/16 10:39 White Blood Count 6.2 TH/MM3 Red Blood Count 5.46 MIL/MM3 Hemoglobin 17.2 GM/DL Hematocrit 51.2 % Mean Corpuscular Volume 93.8 FL Mean Corpuscular Hemoglobin 31.5 PG Mean Corpuscular Hemoglobin Concent 33.6 % Red Cell Distribution Width 14.3 % Platelet Count 181 TH/MM3 Mean Platelet Volume 8.7 FL Neutrophils (%) (Auto) 71.1 % Lymphocytes (%) (Auto) 18.8 % Monocytes (%) (Auto) 8.5 % Eosinophils (%) (Auto) 1.2 % Basophils (%) (Auto) 0.4 % Neutrophils # (Auto) 4.4 TH/MM3 Lymphocytes # (Auto) 1.2 TH/MM3 Monocytes # (Auto) 0.5 TH/MM3 Eosinophils # (Auto) 0.1 TH/MM3 Basophils # (Auto) 0.0 TH/MM3 CBC Comment DIFF FINAL Differential Comment Blood Urea Nitrogen 12 MG/DL Creatinine 1.34 MG/DL Random Glucose 98 MG/DL Total Protein 7.0 GM/DL Albumin 3.5 GM/DL Calcium Level 8.9 MG/DL Alkaline Phosphatase 75 U/L Aspartate Amino Transf (AST/SGOT) 58 U/L Alanine Aminotransferase (ALT/SGPT) 45 U/L Total Bilirubin 0.6 MG/DL Sodium Level 140 MEQ/L Potassium Level 4.0 MEQ/L Chloride Level 105 MEQ/L Carbon Dioxide Level 25.7 MEQ/L Anion Gap 9 MEQ/L Estimat Glomerular Filtration Rate 77 ML/MIN Triglycerides Level 120 MG/DL Cholesterol Level 158 MG/DL LDL Cholesterol 80 MG/DL HDL Cholesterol 54.4 MG/DL Cholesterol/HDL Ratio 2.90 RATIO Vitamin B12 Level 361 PG/ML 25-Hydroxy Vitamin D Total 30.1 ng/ML Thyroid Stimulating Hormone 3rd Gen 0.567 uIU/ML Mental Status Examination Appearance man, age appearing, poor hygiene, guarded, kind of oppositional Speech: Unremarkable, Tangential Orientation: x3 Memory: Unremarkable Thought Process: Organized, Loose Association Thought Content: Paranoid Hallucination Type: Auditory, Visual Attention and Concentration: Easily Distracted Suicidal Ideation: Yes Previous Suicide Attempts: No Homicidal Ideation: No Previous Homicide Attempts: No Insight: Fair Judgment: Impulsive Affect: Irritable Affect if Inappropriate: Labile Mood: Irritable Motor Activity: Normal gait Assessment & Plan Problem List: (1) Chronic paranoid schizophrenia ICD Codes: F20.0 - Paranoid schizophrenia Status: Acute (2) Polysubstance abuse ICD Codes: F19.10 - Other psychoactive substance abuse, uncomplicated Assessment & Plan: I have seen and examined this patient, revised the treatment patient, discussed the patient with nursing charge Ms. Noe, and I completely agree and concur with Dr. Lou assessment and plan. Consul remigio bernard. Assessment & Plan Estimated LOS: days Request HC Surrog/Guard Advoc?: Yes Hugo Davila MD Nov 16, 2016 14:18
[2016-11-17 06:08] VITALS: BP 130/80; PULSE 71; RESP 16; TEMP 97.2; O2SAT 97
[2016-11-17] MEDS: risperiDONE 1 MG TAB PO SCH ×2 (08:21→20:35)
[2016-11-17] MEDS: carBAMazepine 200 MG TAB PO SCH ×2 (08:21→20:35)
--- NOTE | 2016-11-17 09:56 | EKG ---
Date Performed: 11/16/2016 Time Performed: 14:23:16 PTAGE: 26 years EKG: Sinus rhythm ST ELEVATION, PROBABLY EARLY REPOLARIZATION ST DEVIATION AND MODERATE T-WAVE ABNORMALITY, CONSIDER I NFERIOR ISCHEMIA ABNORMAL ECG NO PREVIOUS TRACING DOCTOR: Wyatt Polanco Interpretating Date/Time 11/17/2016 09:54:40
--- NOTE | 2016-11-17 18:24 | HHI.PYPN ---
Subjective Remarks Patient was seen and case discussed with nursing. EKG report review from yesterday which showed an abnormal EKG. Per report, st elevation, early repolarization, abnormal EKG. Patient is interviewed today and denies any cardiac history. He denies chest pain or shortness of breath. Patient says he saw a body being moved out his window and it is unclear if this actually happened, meaning somebody was transported into an ambulance. Says his auditory hallucinations are resolved. No longer seeing shadows or anything on the unit. Asking about discharge. Compliant with medications Objective Alert: Yes [place]: Person, Place, Date Mood: Other ("okay") Affect: Restricted Memory Intact: Comment (intake) Hallucinations: Other (As above. Appears int stim. No CAH.) Delusions: Yes Delusion Type: Paranoid Suicidal: Ideation (No SI) Homicidal: Ideation (No HI) Insight/Judgment Fair Vitals/IOs Vital Signs Date Time Temp Pulse Resp B/P (MAP) Pulse Ox O2 Delivery O2 Flow Rate FiO2 11/17/16 06:08 97.2 71 16 130/80 (97) 97 11/15/16 12:00 Room Air Assessment & Plan Problem List: (1) Chronic paranoid schizophrenia ICD Codes: F20.0 - Paranoid schizophrenia Status: Acute (2) Polysubstance abuse ICD Codes: F19.10 - Other psychoactive substance abuse, uncomplicated Assessment & Plan Repeat stat EKG. Consult medicine. Cardiac enzymes. Stop when necessary Geodon Justification for Cont. Inpt. Patient would decompensate in a less restrictive setting Request HC Surrog/Guard Advoc?: Yes Eric Lynne DO Nov 17, 2016 18:24
[2016-11-17 18:45] VITALS: BP 136/75; PULSE 92; RESP 18; TEMP 97.6; O2SAT 98
[2016-11-17 20:38] LABS: CREATINE KINASE 1426 U/L (39-308)
[2016-11-17 20:52] LABS: CKMB 3.6 NG/ML (0.5-3.6)
[2016-11-18 05:47] VITALS: BP 123/73; PULSE 78; RESP 18; TEMP 97.9; O2SAT 98
[2016-11-18] MEDS: carBAMazepine 200 MG TAB PO SCH ×2 (08:44→21:18)
[2016-11-18] MEDS: risperiDONE 1 MG TAB PO SCH ×2 (08:44→21:18)
--- NOTE | 2016-11-18 09:21 | EKG ---
Date Performed: 11/17/2016 Time Performed: 19:16:11 PTAGE: 26 years EKG: Sinus rhythm SEPTAL MYOCARDIAL INFARCTION , OF INDETERMINATE AGE ABNORMAL ECG PREVIOUS TRACING : 11/16/2016 14.23 DOCTOR: Wyatt Polanco Interpretating Date/Time 11/18/2016 09:20:11
--- NOTE | 2016-11-18 11:02 | RADRPT ---
EXAM DATE/TIME: 11/18/2016 10:34 [place] COMPARISON: No previous studies available for comparison. INDICATIONS : Chest pain MEDICAL HISTORY : None. SURGICAL HISTORY : None. ENCOUNTER: Initial ACUITY: 1 day PAIN SCORE: Non-responsive. LOCATION: chest FINDINGS: A single view of the chest demonstrates the lungs to be symmetrically aerated without evidence of mas s, infiltrate or effusion. The cardiomediastinal contours are unremarkable. Osseous structures are intact. CONCLUSION: Normal examination. Kp Chang MD on November 18, 2016 at 11:00 Board Certified Radiologist. This report was verified electronically.
--- NOTE | 2016-11-18 12:07 | PD.CONS ---
HPI Service [facility] Hospitalists Consult Requested By Primary Care Physician No Primary Care Physician Diagnoses: History of Present Illness Written by Andreina Sabillon, acting as scribe for Dr. Tanner on 11/18/16 at 12: 07. Mr. Anne is a 26-year-old male patient with a known medical history of paranoid schizophrenia with medication noncompliance and who is homeless presented to the psychiatry unit with suicidal ideation and psychotic symptoms. Hospitalist team has been consulted for medical management regarding abnormal EKG findings. Patient seen and examined in 2700 unit. Patient would not answer any questions regarding his psychiatric admission and states "he is trying to get over what brought him in here". 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 He states that the pain is in his left sternal chest area, denies any radiation of pain and states "it just goes away eventually". Denies any previous cardiac workup. Patient also states that pain if aggravated by movement. No identifiable relieving factors. No reproducible chest pain to palpation. Admits to using cocaine recently and regularly. Denies any recent illness including fever, chills, cough, headache, shortness of breath , ab pain, nausea, vomiting or diarrhea. Denies any current auditory or visual hallucinations at this time. Denies any current chest discomfort. Review of Systems Cardiovascular: COMPLAINS OF: Chest pain (left sternal chest discomfort ) Psychiatric: COMPLAINS OF: Mood changes, Suicidal Ideation Except as stated in HPI: all other systems reviewed are Neg Past Family Social History Allergies: Coded Allergies: codeine (Unverified Allergy, Unknown, 11/15/16) Per records from [facility]. shellfish derived (Unverified Allergy, Unknown, 11/15/16) Per records from [facility]. Past Medical History Paranoid schizophrenia Medication noncompliance Past Surgical History Denies any surgical history. Reported Medications Reported Meds & Active Scripts Active Reported Risperdal (Risperidone) 0.25 Mg Tab 2 Mg PO HS Tegretol (Carbamazepine) 200 Mg Tab 200 PO BID Prozac (Fluoxetine HCl) 10 Mg Cap 20 Mg PO DAILY Active Ordered Medications Current Medications Medications (Trade) Dose Ordered Sig/Jorge Route Start Time Stop Time Status Last Admin (Ativan) 1 mg Q6H PRN PO 11/15/16 15:00 11/16/16 23:02 (Ativan Inj) 1 mg Q6H PRN IM 11/15/16 15:00 (Benadryl) 50 mg Q6H PRN PO 11/15/16 15:00 (Benadryl Inj) 50 mg Q6H PRN IM 11/15/16 15:00 (Tylenol) 650 mg Q4H PRN PO 11/15/16 15:00 (Milk Of Magnesia Liq) 30 ml DAILY PRN PO 11/15/16 15:00 (Mag-Al Plus Susp Liq) 30 ml Q6H PRN PO 11/15/16 15:00 (Desyrel) 50 mg HS PRN PO 11/15/16 15:00 (Atarax) 50 mg Q6H PRN PO 11/15/16 15:00 (TEGretol) 200 mg BID PO 11/15/16 15:00 11/18/16 08:44 (risperDAL) 3 mg Taper BID PO 11/16/16 21:00 11/27/16 20:59 11/18/16 08:44 Sodium Chloride 1,000 ml @ 100 mls/hr Q10H IV 11/18/16 12:00 Family History Patient's uncle had an OK in his 50's. Mother had a significant medical history of hypertension and DM. Sister has DM. Social History Patient admits to daily cigarette smoking, 1 ppd since he was 12 years old. Does admit to drinking one beer daily. Does admit to frequent cocaine use. Physical Exam Vital Signs Vital Signs Date Time Temp Pulse Resp B/P (MAP) Pulse Ox O2 Delivery O2 Flow Rate FiO2 11/18/16 05:47 97.9 78 18 123/73 (90) 98 11/17/16 18:45 97.6 92 18 136/75 (95) 98 Physical Exam GENERAL: This is a well-nourished, well-developed male patient, in no apparent distress. SKIN: No rashes. Warm and dry. HEENT: Atraumatic. Normocephalic. Pupils equal round and reactive. Extraocular motions intact. No scleral icterus. No injection or drainage. Nose without bleeding. Airway patent. NECK: Trachea midline. No JVD. Supple. CARDIOVASCULAR: Regular rate and rhythm without murmurs, gallops, or rubs. S1 and S2 present. No reproducible chest discomfort to palpation. RESPIRATORY: Clear to auscultation. Breath sounds equal bilaterally. No wheezes , rales, or rhonchi. GASTROINTESTINAL: Abdomen soft, non-tender, nondistended. No guarding. MUSCULOSKELETAL: Extremities without clubbing, cyanosis, or edema. No joint tenderness, effusion, or edema noted. NEUROLOGICAL: Awake and alert. Cranial nerves II through XII intact. Motor and sensory grossly within normal limits. Five out of 5 muscle strength in all muscle groups. Normal speech. Laboratory Laboratory Tests Test 11/17/16 19:22 Total Creatine Kinase 1426 Creatine Kinase MB 3.6 Creatine Kinase MB % 0.3 Troponin I LESS THAN 0.02 Result Diagram: 11/16/16 1039 11/16/16 1039 Imaging Last Impressions Chest X-Ray 11/18/16 0000 Signed Impressions: Service Date/Time: Friday, November 18, 2016 10:34 - CONCLUSION: Normal examination. Kp Chang MD Assessment and Plan Assessment and Plan Mr. Anne is a 26-year-old male patient with a known medical history of paranoid schizophrenia with medication noncompliance and who is homeless presented to the psychiatry unit with suicidal ideation and psychotic symptoms. Hospitalist team has been consulted for medical management regarding abnormal EKG findings. Paranoid schizophrenia - Management per psychiatry team. - Currently on Risperidone, Trazodone and Hydroxyzine. - Will transfer patient to the [facility] unit for medical care and IVF and closer monitoring. Chest pain suspect secondary to recent cocaine use vs rhabdomyolysis EKG changes - Cardiology consulted, appreciated further recommendations. - EKG reviewed showing some t-wave inversions in inferior leads, with some possible early repolarization in septal leads. - Chest x-ray reviewed unremarkable. - Initial troponin flat. CKMB negative. Will draw serial troponins and CKMB. Follow. - 2-D ECHO ordered and pending. Will follow. Acute kidney injury suspect secondary to dehydration vs rhabdomyolysis - Creatinine 1.40 and creatinine kinase 1426 on presentation. - Will start on IVF NS at 100 ml/hr. - Encouraged PO intake. Monitor I&O. Cocaine abuse: Encouraged cessation. Tobacco abuse: Encouraged cessation. DVT prophylaxis: Low risk and ambulatory. This note was transcribed by lee Sabillon. I, Dr. Steve Agarwal personally performed the history, physical exam, and medical decision making; and confirmed the accuracy of the information in the transcribed note. Authenticated by Dr. Steve Agarwal on 11/18/16 at 12:20. Andreina Sabillon Nov 18, 2016 12:07 Steve Dominguez MD Nov 18, 2016 13:56
[2016-11-18] MEDS: SODIUM CHLOR 0.9% 1000 ML INJ 1,000 ML IV SCH ×2 (14:19→23:10)
--- NOTE | 2016-11-18 15:44 | HHI.PYPN ---
Subjective Remarks Patient was seen and case discussed with nursing. Patient has been transferred to the medical unit for rhabdomyolysis. He does not have any physical complaints at this time. Per nursing, he has been behaving well and denies auditory or visual hallucinations. Compliant with medications. Perseverative on discharge Objective Alert: Yes Regina: Person, Place, Date Mood: Other ("okay") Affect: Restricted Memory Intact: Comment (intake) Hallucinations: Other (denies) Delusions: Yes Delusion Type: Paranoid Suicidal: Ideation (No SI) Homicidal: Ideation (No HI) Insight/Judgment Poor Labs Test 11/17/16 19:22 Total Creatine Kinase 1426 U/L Creatine Kinase MB 3.6 NG/ML Creatine Kinase MB % 0.3 % Troponin I LESS THAN 0.02 NG/ML Vitals/IOs Vital Signs Date Time Temp Pulse Resp B/P (MAP) Pulse Ox O2 Delivery O2 Flow Rate FiO2 11/18/16 05:47 97.9 78 18 123/73 (90) 98 11/15/16 12:00 Room Air Assessment & Plan Problem List: (1) Chronic paranoid schizophrenia ICD Codes: F20.0 - Paranoid schizophrenia Status: Acute (2) Polysubstance abuse ICD Codes: F19.10 - Other psychoactive substance abuse, uncomplicated Assessment & Plan Continue current treatment plan Justification for Cont. Inpt. Patient would decompensate in a less restrictive setting Request HC Surrog/Guard Advoc?: Yes Eric Lynne DO Nov 18, 2016 15:44
--- NOTE | 2016-11-18 16:10 | MB ---
cc: CHRISTINE FORD M.D. DATE OF CONSULTATION: 11/18/2016. REASON FOR CONSULTATION: EKG changes. Rhabdomyolysis. HISTORY OF PRESENT ILLNESS: Mr. Anne is a 26-year-old -[place] gentleman with history of drug abuse. He just used cocaine just before hospitalization on November 15, 2016. He had some psychotic issues. Apparently the gentleman self-admitted to the hospital. Labs were performed and he was found with increased CK. Rhabdomyolysis is suspected. There was also some concern about Electrocardiographic changes. I was consulted for evaluation and management. The chart was reviewed. The patient was evaluated. ALLERGIES: 1. CODEINE. 2. SHELLFISH. SOCIAL HISTORY: As mentioned before, the gentleman just used cocaine on the before hospitalization. FAMILY HISTORY: Noncontributory to his current medical condition. MEDICATIONS: He is currently on: 1. Tegretol 200 milligrams twice a day. 2. Benadryl. 3. Atarax 50 milligrams q. 6 hours. 4. Lorazepam 1 milligrams q. 6 hours. 5. Magnesium. 6. Risperdal 3 milligrams twice a day. 7. Trazodone 50 milligrams at bedtime. 8. Geodon 20 milligrams twice a day PRN REVIEW OF SYSTEMS: The patient refers no chest pain. No chest discomfort. No palpitations. No fever. No shortness of breath. PHYSICAL EXAMINATION: GENERAL: Alert, fully oriented, pleasant in bed. VITAL SIGNS: Blood pressure 122/73, pulse 78, respiratory rate 18. LUNGS: Ventilated. CARDIOVASCULAR: S1-S2. No gallop. No murmur. ABDOMEN: Abdomen soft, no mass. EXTREMITIES: No edema. EKGS: Electrocardiogram shows sinus rhythm, some minimal S-T changes. LABS: Hemoglobin is 17.2, white blood cells 6.2. Potassium 4.0. Creatinine 1.34. Total CK 126. Troponin 0.02. HDL 54, LDL 80. Total cholesterol 158. Urine was positive for cocaine. ASSESSMENT AND RECOMMENDATIONS: Mr. Anne currently is stable. No chest pain. No chest discomfort. This is a very active gentleman. There are no acute S-T changes. His CK is increased but I will not call that rhabdomyolysis. The gentleman most likely was dehydrated. D He will need to increase his fluid intake. At this point, my recommendation is hydration. Continue his psychotic management. Repeat labs. A 2-D echocardiogram will be ordered. I will see the gentleman again in the morning. MD RATNA uLtz/YASMINE /2:39 PM /4:00 PM
[2016-11-18 18:00] VITALS: BP 146/86; PULSE 92; RESP 16; TEMP 98.2; O2SAT 93
[2016-11-18 20:48] LABS: BASOPHIL % 0.5 % (0.0-2.0); EOSINOPHIL # 0.1 TH/MM3 (0-0.4); EOSINOPHIL % 1.4 % (0.0-4.0); HEMATOCRIT 48.7 % (39.0-51.0); HEMO FLAGS DIFF FINAL; LYMPH % 30.2 % (9.0-44.0); LYMPHOCYTE # 1.5 TH/MM3 (1.0-4.8); MEAN CELL VOLUME 92.8 FL (80.0-100.0); MEAN CORPUSCULAR HEMOGLOBIN 31.4 PG (27.0-34.0); MEAN CORPUSCULAR HGB CONC 33.8 % (32.0-36.0); MONO % 7.8 % (0.0-8.0); NEUT % 60.1 % (16.0-70.0); PLATELET COUNT 185 TH/MM3 (150-450); RED BLOOD COUNT 5.24 MIL/MM3 (4.50-5.90); RED CELL DISTRIBUTION WIDTH 13.9 % (11.6-17.2)
[2016-11-18 21:28] LABS: ALT (GPT) 41 U/L (12-78); ANION GAP 5 MEQ/L (5-15); AST (GOT) 38 U/L (15-37); BLOOD UREA NITROGEN 10 MG/DL (7-18); CHLORIDE 104 MEQ/L (98-107); GLOMERULAR FILTRATION RATE 94 ML/MIN (>89); POTASSIUM 4.1 MEQ/L (3.5-5.1); SODIUM (NA) 139 MEQ/L (136-145)
[2016-11-18 21:43] LABS: ALKALINE PHOSPHATASE 72 U/L (45-117); CREATINE KINASE 1061 U/L (39-308); TOTAL BILIRUBIN ADULT 0.3 MG/DL (0.2-1.0)
[2016-11-18 21:55] LABS: CKMB 2.9 NG/ML (0.5-3.6)
[2016-11-19 04:59] VITALS: BP 120/75; PULSE 85; RESP 18; TEMP 97.5; O2SAT 95
[2016-11-19] MEDS: SODIUM CHLOR 0.9% 1000 ML INJ 1,000 ML IV SCH ×2 (08:00→16:48)
[2016-11-19] MEDS: risperiDONE 1 MG TAB PO SCH ×2 (08:32→20:17)
[2016-11-19] MEDS: carBAMazepine 200 MG TAB PO SCH ×2 (08:32→20:17)
--- NOTE | 2016-11-19 10:13 | HHI.PYPN ---
Subjective Remarks Patient seen and examined. Chart reviewed. Case discussed with nursing staff. Patient transferred up to the medical psychiatric unit over the weekend with elevated CK elevation, mildly abnormal EKG. Cardiology consultation reviewed. An echocardiogram has been planned for this morning. On my examination today, the patient is somewhat anxious. He is somewhat discharge focused. He denies SI or HI. Denies paranoia. No other delusions. Denies audiovisual hallucinations. Denies side effects from medications. Insists that he is "done " with substance use. No physical complaints at this time. Review of Systems Except as stated in HPI: all other systems reviewed are Neg Objective Alert: Yes Witt: Person, Place, Date Mood: Anxious (mild) Affect: Blunted Memory Intact: Comment (intact) Hallucinations: Other (denies AVH) Delusions: No Delusion Type: Other (no delusions) Suicidal: Ideation (denies SI) Homicidal: Ideation (denies HI) Insight/Judgment Poor Remarks No motor abnormalities noted. Grooming and hygiene good. Thought process linear. Labs Test 11/18/16 20:09 White Blood Count 5.0 TH/MM3 Red Blood Count 5.24 MIL/MM3 Hemoglobin 16.4 GM/DL Hematocrit 48.7 % Mean Corpuscular Volume 92.8 FL Mean Corpusc Ular Hemoglobin 31.4 PG Mean Corpuscular Hemoglobin Concent 33.8 % Red Cell Distribution Width 13.9 % Platelet Count 185 TH/MM3 Mean Platelet Volume 8.4 FL Neutrophils (%) (Auto) 60.1 % Lymphocytes (%) (Auto) 30.2 % Monocytes (%) (Auto) 7.8 % Eosinophils (%) (Auto) 1.4 % Basophils (%) (Auto) 0.5 % Neutrophils # (Auto) 3.0 TH/MM3 Lymphocytes # (Auto) 1.5 TH/MM3 Monocytes # (Auto) 0.4 TH/MM3 Eosinophils # (Auto) 0.1 TH/MM3 Basophils # (Auto) 0.0 TH/MM3 CBC Comment DIFF FINAL Differential Comment Blood Urea Nitrogen 10 MG/DL Creatinine 1.13 MG/DL Random Glucose 101 MG/DL Total Protein 6.9 GM/DL Albumin 3.5 GM/DL Calcium Level 8.7 MG/DL Alkaline Phosphatase 72 U/L Aspartate Amino Transf (AST/SGOT) 38 U/L Alanine Aminotransferase (ALT/SGPT) 41 U/L Total Bilirubin 0.3 MG/DL Sodium Level 139 MEQ/L Potassium Level 4.1 MEQ/L Chloride Level 104 MEQ/L Carbon Dioxide Level 30.0 MEQ/L Anion Gap 5 MEQ/L Estimat Glomerular Filtration Rate 94 ML/MIN Total Creatine Kinase 1061 U/L Creatine Kinase MB 2.9 NG/ML Creatine Kinase MB % 0.3 % Troponin I LESS THAN 0.02 NG/ML Labs reviewed. CK downtrending. Carbamazepine level ordered for this morning is listed as in process. Vitals/IOs Vital Signs Date Time Temp Pulse Resp B/P (MAP) Pulse Ox O2 Delivery O2 Flow Rate FiO2 11/19/16 04:59 97.5 85 18 120/75 (90) 95 11/15/16 12:00 Room Air Intake and Output 11/19/16 11/19/16 11/20/16 08:00 16:00 00:00 Intake Total 480 ml Balance 480 ml Assessment & Plan Problem List: (1) Chronic paranoid schizophrenia ICD Codes: F20.0 - Paranoid schizophrenia Status: Acute (2) Polysubstance abuse ICD Codes: F19.10 - Other psychoactive substance abuse, uncomplicated Assessment & Plan Continue current psychotropics as ordered. Follow-up carbamazepine level and other laboratories. Consultants input appreciated. Counselor obtaining collateral from patient's mother. Continue other medications and care as ordered. Justification for Cont. Inpt. Complicating conditions Discharge Planning Possible discharge later today or more likely tomorrow, Saturday. Request HC Surrog/Guard Advoc?: Yes Berry Lou MD Nov 19, 2016 10:13
[2016-11-19 11:13] LABS: AUTOMATED NEUTROPHIL # 2.9 TH/MM3 (1.8-7.7); BASOPHIL % 0.5 % (0.0-2.0); EOSINOPHIL # 0.1 TH/MM3 (0-0.4); EOSINOPHIL % 1.2 % (0.0-4.0); HEMATOCRIT 50.2 % (39.0-51.0); HEMO FLAGS DIFF FINAL; LYMPH % 21.9 % (9.0-44.0); LYMPHOCYTE # 0.9 TH/MM3 (1.0-4.8); MEAN CELL VOLUME 94.3 FL (80.0-100.0); MEAN CORPUSCULAR HEMOGLOBIN 31.5 PG (27.0-34.0); MEAN CORPUSCULAR HGB CONC 33.4 % (32.0-36.0); MONO % 6.9 % (0.0-8.0); NEUT % 69.5 % (16.0-70.0); PLATELET COUNT 175 TH/MM3 (150-450); RED BLOOD COUNT 5.32 MIL/MM3 (4.50-5.90); RED CELL DISTRIBUTION WIDTH 14.2 % (11.6-17.2); WHITE BLOOD COUNT 4.2 TH/MM3 (4.0-11.0)
[2016-11-19 11:34] LABS: ALT (GPT) 41 U/L (12-78); ANION GAP 7 MEQ/L (5-15); AST (GOT) 28 U/L (15-37); BICARBONATE 27.7 MEQ/L (21.0-32.0); BLOOD UREA NITROGEN 10 MG/DL (7-18); CHLORIDE 102 MEQ/L (98-107); GLOMERULAR FILTRATION RATE 91 ML/MIN (>89); POTASSIUM 4.1 MEQ/L (3.5-5.1); SODIUM (NA) 137 MEQ/L (136-145)
[2016-11-19 11:37] LABS: ALKALINE PHOSPHATASE 71 U/L (45-117); CREATINE KINASE 800 U/L (39-308); TOTAL BILIRUBIN ADULT 0.4 MG/DL (0.2-1.0)
[2016-11-19 11:54] LABS: CKMB 2.4 NG/ML (0.5-3.6)
--- NOTE | 2016-11-19 12:17 | HHI.PR ---
Subjective Remarks Patient seen this morning around 11 AM. Says he is feeling well. Denies any chest pain or shortness of breath. Reports muscle pain has resolved. Objective Vital Signs Date Time Temp Pulse Resp B/P (MAP) Pulse Ox O2 Delivery O2 Flow Rate FiO2 11/19/16 04:59 97.5 85 18 120/75 (90) 95 11/18/16 18:00 98.2 92 16 146/86 (106) 93 I/O 11/18/16 11/18/16 11/18/16 11/19/16 11/19/16 11/19/16 07:00 15:00 23:00 07:00 15:00 23:00 Intake Total 1070 ml 480 ml Balance 1070 ml 480 ml Intake Oral 720 ml 480 ml IV Total 350 ml # Voids 1 2 1 Result Diagram: 11/19/16 1013 11/19/16 1013 Objective Remarks GENERAL: Lying in bed. Sleeping, wakes up for exam. Alert and oriented 3. SKIN: Warm and dry. HEAD: Normocephalic. EYES: No scleral icterus. No injection or drainage. NECK: Supple, trachea midline. No JVD . CARDIOVASCULAR: Regular rate and rhythm without murmurs, gallops, or rubs. RESPIRATORY: Breath sounds equal bilaterally. No accessory muscle use. GASTROINTESTINAL: Abdomen soft, non-tender, nondistended. MUSCULOSKELETAL: No cyanosis, or edema. No muscle tenderness. BACK: Nontender without obvious deformity. No CVA tenderness. A/P Assessment and Plan Mr. Anne is a 26-year-old male patient with a known medical history of paranoid schizophrenia with medication noncompliance and who is homeless presented to the psychiatry unit with suicidal ideation and psychotic symptoms. Hospitalist team has been consulted for medical management regarding abnormal EKG findings. //Paranoid schizophrenia - Management per psychiatry team. - Currently on Risperidone, Trazodone and Hydroxyzine. -Management as per psychiatry. //Chest pain suspect secondary to recent cocaine use vs rhabdomyolysis EKG changes - Cardiology consulted, appreciated further recommendations. - EKG reviewed showing some t-wave inversions in inferior leads, with some possible early repolarization in septal leads. - Chest x-ray reviewed unremarkable. - Initial troponin flat. CKMB negative. Will draw serial troponins and CKMB. Follow. -11/19. Still with 2-D ECHO pending. Will follow. //Acute kidney injury suspect secondary to dehydration vs rhabdomyolysis - Creatinine 1.40 and creatinine kinase 1426 on presentation. -11/19. Resolved. Continue IV fluids for rhabdomyolysis. //Cocaine abuse: Patient was counseled on cessation. Promises to avoid completely in the future.. //Tobacco abuse: Cessation counseling provided. DVT prophylaxis: Low risk and ambulatory. Discharge Planning Echo pending. If normal, patient will be able to be discharged. Will need to follow-up with primary care for repeat labs, ck. Monroe Lewis MD Nov 19, 2016 12:17
[2016-11-19] MEDS ORDERED: SODIUM PHOSPHATE INJ 15 MMOL in SODIUM CHLORIDE 0.9% INJ 150 ML IV ONE (13:00)
--- NOTE | 2016-11-19 14:52 | HHI.PR ---
Subjective Remarks Feeling ok I want to go home Objective Vital Signs Date Time Temp Pulse Resp B/P (MAP) Pulse Ox O2 Delivery O2 Flow Rate FiO2 11/19/16 04:59 97.5 85 18 120/75 (90) 95 11/18/16 18:00 98.2 92 16 146/86 (106) 93 I/O 11/18/16 11/18/16 11/18/16 11/19/16 11/19/16 11/19/16 06:59 14:59 22:59 06:59 14:59 22:59 Intake Total 1070 ml 1680 ml Balance 1070 ml 1680 ml Intake Oral 720 ml 1680 ml IV Total 350 ml # Voids 1 2 3 Result Diagram: 11/19/16 1013 11/19/16 1013 Imaging Alert, fully oriented Lungs: ventilated Heart: S1, S2 regular Abdomen: soft, no mass Ext: no edema Last Impressions Chest X-Ray 11/18/16 0000 Signed Impressions: Service Date/Time: Friday, November 18, 2016 10:34 - CONCLUSION: Normal examination. Kp Chang MD Current Medications Medications (Trade) Dose Ordered Sig/Jorge Route Start Time Stop Time Status Last Admin (Ativan) 1 mg Q6H PRN PO 11/15/16 15:00 11/16/16 23:02 (Ativan Inj) 1 mg Q6H PRN IM 11/15/16 15:00 (Benadryl) 50 mg Q6H PRN PO 11/15/16 15:00 (Benadryl Inj) 50 mg Q6H PRN IM 11/15/16 15:00 (Tylenol) 650 mg Q4H PRN PO 11/15/16 15:00 (Milk Of Magnesia Liq) 30 ml DAILY PRN PO 11/15/16 15:00 (Mag-Al Plus Susp Liq) 30 ml Q6H PRN PO 11/15/16 15:00 (Desyrel) 50 mg HS PRN PO 11/15/16 15:00 (Atarax) 50 mg Q6H PRN PO 11/15/16 15:00 (TEGretol) 200 mg BID PO 11/15/16 15:00 11/19/16 08:32 (risperDAL) 3 mg Taper BID PO 11/16/16 21:00 11/27/16 20:59 11/19/16 08:32 Sodium Chloride 1,000 ml @ 100 mls/hr Q10H IV 11/18/16 12:00 11/19/16 08:00 Sodium Phosphate 15 mmol/Sodium Chloride 155 ml @ 38.75 mls/ hr ONCE ONCE IV 11/19/16 13:00 11/19/16 16:59 11/19/16 13:00 Assessment and Plan Problem List: (1) EKG abnormalities ICD Codes: R94.31 - Abnormal electrocardiogram [ECG] [EKG] Plan: Doing better No chest pain can be DH when ok with the managing team I will be available on a PRN basis. (2) Rhabdomyolysis ICD Codes: M62.82 - Rhabdomyolysis Plan: Doing better Melly Chaidez MD Nov 19, 2016 14:52
[2016-11-19 18:09] VITALS: BP 136/77; PULSE 77; RESP 18; TEMP 98.4; O2SAT 98
--- NOTE | 2016-11-19 20:29 | ECHRPT ---
Indication: ABNORMAL EKG CONCLUSIONS Normal left ventricular size. Wall thickness is normal. The left ventricular systolic function is low normal with an estimated ejection fraction in the rang e of 50- 55%. The left atrial size is [id number] dilated. The right atrial size is epjt-gf-xkahhcptpm dilated. No atrial level shunt is demonstrated by color flow Doppler interrogation. Mild thickening of the mitral valve leaflets. Trace mitral valve regurgitation. No mitral valve stenosis. No aortic valve regurgitation. No aortic valve stenosis. No tricuspid regurgitation. No tricuspid valve stenosis. The inferior vena cava (IVC) is normal in size. There is greater than 50% respiratory change in dimension of the inferior vena cava (normal). BP: 120 / 75 HR: 85 Rhythm: Sinus Technical Quality:Fair FINDINGS LEFT VENTRICLE Normal left ventricular size. Wall thickness is normal. The left ventricular systolic function is low normal with an estimated ejection fraction in the rang e of 50- 55%. Left ventricular diastolic function parameters are normal. RIGHT VENTRICLE Normal right ventricular size and systolic function. LEFT ATRIUM The left atrial size is hjkr-os-kosvwoywrh dilated. RIGHT ATRIUM The right atrial size is vcnb-ly-nmybebbadt dilated. ATRIAL SEPTUM No atrial level shunt is demonstrated by color flow Doppler interrogation. AORTA The aortic root and proximal ascending aorta are normal in size on limited imaging. MITRAL VALVE Mild thickening of the mitral valve leaflets. Trace mitral valve regurgitation. No mitral valve stenosis. AORTIC VALVE Trileaflet aortic valve. No aortic valve regurgitation. No aortic valve stenosis. TRICUSPID VALVE Structurally normal tricuspid valve. No tricuspid regurgitation. No tricuspid valve stenosis. PULMONARY VALVE No pulmonary valve regurgitation or stenosis. VESSELS The inferior vena cava (IVC) is normal in size. There is greater than 50% respiratory change in dimension of the inferior vena cava (normal). PERICARDIUM No pericardial effusion. Víctor Sommer MD, FACC, FSCAI (Electronically Signed) Final Date:19 November 2016 20:28
[2016-11-20] MEDS: SODIUM CHLOR 0.9% 1000 ML INJ 1,000 ML IV SCH (04:00)
[2016-11-20 05:44] VITALS: BP 116/57; PULSE 75; RESP 16; TEMP 97.9; O2SAT 97
[2016-11-20] MEDS: risperiDONE 1 MG TAB PO SCH (08:50)
[2016-11-20] MEDS: carBAMazepine 200 MG TAB PO SCH (08:50)
[2016-11-20 09:00] LABS: AUTOMATED NEUTROPHIL # 4.2 TH/MM3 (1.8-7.7); BASOPHIL % 0.5 % (0.0-2.0); EOSINOPHIL # 0.1 TH/MM3 (0-0.4); EOSINOPHIL % 1.5 % (0.0-4.0); HEMATOCRIT 53.1 % (39.0-51.0); HEMO FLAGS DIFF FINAL; LYMPH % 20.1 % (9.0-44.0); LYMPHOCYTE # 1.2 TH/MM3 (1.0-4.8); MEAN CELL VOLUME 94.1 FL (80.0-100.0); MEAN CORPUSCULAR HEMOGLOBIN 31.6 PG (27.0-34.0); MEAN CORPUSCULAR HGB CONC 33.6 % (32.0-36.0); MONO % 7.7 % (0.0-8.0); NEUT % 70.2 % (16.0-70.0); PLATELET COUNT 162 TH/MM3 (150-450); RED BLOOD COUNT 5.65 MIL/MM3 (4.50-5.90); RED CELL DISTRIBUTION WIDTH 14.2 % (11.6-17.2)
[2016-11-20 09:28] LABS: BICARBONATE 27.6 MEQ/L (21.0-32.0); MAGNESIUM 2.2 MG/DL (1.5-2.5); POTASSIUM 4.1 MEQ/L (3.5-5.1)
[2016-11-20] MEDS ORDERED: RISP1 PO (09:42)
[2016-11-20] MEDS ORDERED: TEGR200T PO (09:42)
--- NOTE | 2016-11-20 09:43 | HHI.DS ---
Psychiatry Discharge Summary Inpatient Psychiatric care?: Yes Advance Directive: No Reason Not Provided: Due to Patient Condition Mental Health AdvanceDirective: No Health Care Proxy: No Admission Admission Date Nov 15, 2016 at 13:26 Admission Diagnosis: (1) Chronic paranoid schizophrenia ICD Code: F20.0 - Paranoid schizophrenia Brief History 26-year-old male who presents voluntarily with psychotic symptoms and suicidal ideation and a history of noncompliance with psychotropic medicine. Patient is extremely guarded and sent this physician's nurse as well as the [facility] liaisonOneil, out of the room before he would speak. He admits to approximately 5 months of psychotic symptoms, increasing in frequency and severity. He states this began after he was released from detention. While he was incarcerated, he reports he received his medications on a daily basis and that he did much better. He is actually asking for an increase in medicines right now because of his disturbing symptoms. He describes auditory hallucinations that "say all kinds of things" but are often derogatory. The patient is often paranoid and feels others are trying to harm him so he avoids people, especially at night. He reports looking around him more behind him frequently throughout the day because he does not know who is trying to harm him or how it will occur but he is convinced that someone is out to "get him". He describes suicidal ideation although he has no current plan. He states "I can't live like this". He is currently homeless. Tobacco Use In Past 30 Days: No Tobacco Past 30 Days Alcohol Use: Never Hospital Course Patient was admitted to a locked, inpatient psychiatric unit. A general medical and cardiology consultation were obtained. Appropriate precautions were in place throughout patient's hospital stay. Patient was seen and examined daily on the unit by psychiatry and also visited by counselor. Psychotropic medications were adjusted. Patient tolerated medication changes well without side effects. Patient had improvement in presenting psychiatric symptomatology during the course of his hospital stay. There was no evidence of any suicidality or homicidality on the inpatient unit. Patient was transferred to the medical psychiatric unit for IV hydration after he was found to have an elevated CK. Cardiology consultation was obtained for abnormal EKG but subsequent echocardiogram was unremarkable. On the day of discharge: Patient seen and examined. Chart reviewed. Case discussed with nursing staff and with counselor. Per nursing staff, no significant behavioral problems overnight although the patient did remove his own IV. When I asked the patient about this today, he tells me that he did so because it was uncomfortable for him. He had reportedly told nursing that he was worried someone might put something in it, but he denies this to me now. He is requesting discharge from the inpatient psychiatric unit today. He denies any suicidal or homicidal ideation, intent or plan on direct questioning and contracts for safety. Mood is stable and I can elicit no depressive or hypomanic/manic symptoms. He denies any audiovisual hallucinations and I can elicit no frankly delusional beliefs although he does remain a little bit guarded. He reportedly slept well overnight. He denies side effects from medications. No physical complaints at this time. Weighing the acute, chronic, and protective factors and based on the available evidence, I field application engineer to a reasonable degree of medical certainty that the patient is at low imminent risk of harm to self or others from a mental illness as defined under the [place] act and his level of function is adequate for outpatient care. The patient no longer meets criteria for involuntary psychiatric hospitalization, and since he is requesting discharge from the inpatient unit today, I will arrange for his discharge with psychiatric follow-up as arranged by counselor. Patient is also to follow-up with primary care. I have counseled the patient to abstain from drugs of abuse. I have counseled the patient regarding warning signs need to return to the psychiatric emergency room as part of a general safety plan. Results Blood Pressure 116 / 57 Vital Signs Date Time Temp Pulse Resp B/P (MAP) Pulse Ox O2 Delivery O2 Flow Rate FiO2 11/20/16 05:44 97.9 75 16 116/57 (76) 97 Laboratory Tests Test 11/17/16 19:22 11/18/16 20:09 11/19/16 10:13 11/20/16 08:32 Total Creatine Kinase 1426 U/L (39-308) 1061 U/L (39-308) 800 U/L (39-308) 555 U/L (39-308) Troponin I LESS THAN 0.02 NG/ML LESS THAN 0.02 NG/ML Aspartate Amino Transf (AST/SGOT) 38 U/L (15-37) Lymphocytes # (Auto) 0.9 TH/MM3 (1.0-4.8) Random Glucose 166 MG/DL (74-106) 156 MG/DL (74-106) Phosphorus Level 1.8 MG/DL (2.5-4.9) 2.4 MG/DL (2.5-4.9) Hemoglobin 17.9 GM/DL (13.0-17.0) Hematocrit 53.1 % (39.0-51.0) Neutrophils (%) (Auto) 70.2 % (16.0-70.0) Creatinine 1.35 MG/DL (0.60-1.30) Estimat Glomerular Filtration Rate 76 ML/MIN (>89) Laboratory Results Test 11/16/16 10:39 Cholesterol Level 158 MG/DL (120-200) HDL Cholesterol 54.4 MG/DL (40.0-60.0) Hemoglobin A1c 5.7 % (4.3-6.0) LDL Cholesterol 80 MG/DL (0-99) Triglycerides Level 120 MG/DL (42-150) Summary of Major Lab Results Mildly decreased GFR and PO4. CK downtrending. Repeat labs in 1 week. Summary of Procedures Echocardiogram read as normal. Imaging Last Impressions Chest X-Ray 11/18/16 0000 Signed Impressions: Service Date/Time: Friday, November 18, 2016 10:34 - CONCLUSION: Normal examination. Kp Chang MD Pending results at discharge: No Medications # of Antipsychotic meds at D/C: 1 Approp Antipsych med options 1 - Minimum of three failed multiple trials of monotherapy. 2 - Documented plan to taper to monotherapy due to previous use of multiple meds OR cross-taper in progress at D/C. 3 - Documentation of augmentation of Clozapine. 4 - Justification other than those listed in allowable values 1-3, document here : Discharge Discharge Date: Nov 20, 2016 Discharge Diagnosis: (1) Chronic paranoid schizophrenia Diagnosis: Principal (stabilized) ICD Code: F20.0 - Paranoid schizophrenia Status: Acute (2) Polysubstance abuse Diagnosis: Secondary (counseled to quit) ICD Code: F19.10 - Other psychoactive substance abuse, uncomplicated Mental Status Exam at Disch Patient is casually dressed. Patient is well groomed. Patient is awake and alert and oriented person and hospital at least. No evidence of delirium. No motor abnormalities appreciated. Speech is within normal limits for rate, tone , volume. Language and fund of knowledge average. Focus and concentration intact. Memory grossly intact on clinical exam. Mood is stable. Affect is somewhat blunted. Thought processes linear. No delusions elicited although the patient does remain a little guarded. Denies audiovisual hallucinations and does not appear internally stimulated. Denies suicidal or homicidal ideation, intent, or plan and contracts for safety. Insight and judgment seem fair/poor. Pt Condition on Discharge: Stable Discharge Disposition: Discharge Home Discharge Instructions Diet Instructions: As Tolerated, No Restrictions Activities you can perform: Weight Bearing as Reyna Scheduled Appointment: as per counselor's notes New Orders: BASIC METABOLIC PROF - 1 Week CREATININE KINASE - 1 Week PHOSPHORUS (PO4) - 1 Week New Medications: Risperidone (Risperdal) 1 Mg Tab 3 MG PO BID for Mental Health for 15 Days, TAB 1 Refill Changed Medications: Carbamazepine (Tegretol) 200 Mg Tab 200 MG PO BID for Mental Health for 15 Days, TAB 1 Refill (Changed from: 200 ; Removed Quantity; Refills: 0) Discontinued Medications: Fluoxetine (Prozac) 10 Mg Cap 20 MG PO DAILY, #30 CAP 0 Refills Risperidone (Risperdal) 0.25 Mg Tab 2 MG PO HS, #30 TAB 0 Refills Discharge Time <= 30 minutes Discharge/Advance Care Plan Health Problems: (1) Chronic paranoid schizophrenia (2) Polysubstance abuse Goals to promote your health * To prevent worsening of your condition and complications * To maintain your health at the optimal level Directions to meet your goals Take your medications as prescribed Follow your dietary instruction Follow activity as directed Keep your appointments as scheduled Take your immunizations and boosters as scheduled If your symptoms worsen call your PCP, if no PCP go to Urgent Care Center or Emergency Room For 08/10 questions related to your inpatient stay or results of tests pending at discharge, please contact Dr. Berry Lou at Smoking is Dangerous to Your Health. Avoid second hand smoking Berry Lou MD Nov 20, 2016 09:43
[2016-11-20 10:16] LABS: CKMB 1.6 NG/ML (0.5-3.6)
--- NOTE | 2016-11-20 12:08 | HHI.PR ---
Subjective Remarks Pt seen for follow-up of rhabdomyolysis. Denied muscle, chest, and flank pain. Reported urine is clear. No new issues reported by pt. Discussed with RN. She reported pt had removed his IV and was declining IV fluids. She stated he has been cleared by psychiatry for discharge. Objective Vitals Vital Signs Date Time Temp Pulse Resp B/P (MAP) Pulse Ox O2 Delivery O2 Flow Rate FiO2 11/20/16 05:44 97.9 75 16 116/57 (76) 97 11/19/16 18:09 98.4 77 18 136/77 (96) 98 I/O 11/19/16 11/19/16 11/19/16 11/20/16 11/20/16 11/20/16 07:00 15:00 23:00 07:00 15:00 23:00 Intake Total 1680 ml 4 ml 360 ml Balance 1680 ml 4 ml 360 ml Intake Oral 1680 ml 4 ml 360 ml # Voids 2 3 2 Result Diagram: 11/20/16 0832 11/20/16 0832 Objective Remarks GENERAL: Pt encountered laying a bed. Resting. SKIN: Warm and dry. HEAD: Normocephalic. EYES: No scleral icterus. No injection or drainage. NECK: Supple, trachea midline. No lymphadenopathy. CARDIOVASCULAR: Regular rate and rhythm without murmurs, gallops, or rubs. RESPIRATORY: Breath sounds equal bilaterally. No wheezes rhonchi or crackles. No accessory muscle use. GASTROINTESTINAL: Abdomen soft, non-tender, nondistended. MUSCULOSKELETAL: No cyanosis, or edema. PSYCHIATRIC: Appropriate mood and affect. Patient was pleasant and cooperative. Speech was clear and fluent. Medications and IVs Current Medications Medications (Trade) Dose Ordered Sig/Jorge Route Start Time Stop Time Status Last Admin (Ativan) 1 mg Q6H PRN PO 11/15/16 15:00 11/16/16 23:02 (Ativan Inj) 1 mg Q6H PRN IM 11/15/16 15:00 (Benadryl) 50 mg Q6H PRN PO 11/15/16 15:00 (Benadryl Inj) 50 mg Q6H PRN IM 11/15/16 15:00 (Tylenol) 650 mg Q4H PRN PO 11/15/16 15:00 (Milk Of Magnesia Liq) 30 ml DAILY PRN PO 8/31/17 15:00 (Mag-Al Plus Susp Liq) 30 ml Q6H PRN PO 11/15/16 15:00 (Desyrel) 50 mg HS PRN PO 11/15/16 15:00 (Atarax) 50 mg Q6H PRN PO 11/15/16 15:00 (TEGretol) 200 mg BID PO 11/15/16 15:00 11/20/16 08:50 (risperDAL) 3 mg Taper BID PO 11/16/16 21:00 11/27/16 20:59 11/20/16 08:50 Sodium Chloride 1,000 ml @ 100 mls/hr Q10H IV 11/18/16 12:00 11/19/16 16:48 Urinary Catheter: No A/P Assessment and Plan Mr. Anne is a 26-year-old male patient with a known medical history of paranoid schizophrenia with medication noncompliance and who is homeless presented to the psychiatry unit with suicidal ideation and psychotic symptoms. Hospitalist team has been consulted for medical management regarding abnormal EKG findings. Chest pain: Denied. echocardiogram evidenced EF of 50-55% MARCO: CK continues downward trend 555 this morning. Pt refusing IV fluids. Medically cleared for discharge. //Paranoid schizophrenia - Management per psychiatry team. - Currently on Risperidone, Trazodone and Hydroxyzine. -Management as per psychiatry. //Chest pain suspect secondary to recent cocaine use vs rhabdomyolysis EKG changes - Cardiology consulted, appreciated further recommendations. - EKG reviewed showing some t-wave inversions in inferior leads, with some possible early repolarization in septal leads. - Chest x-ray reviewed unremarkable. - Initial troponin flat. CKMB negative. Will draw serial troponins and CKMB. Follow. -11/19. Still with 2-D ECHO pending. Will follow. //Acute kidney injury suspect secondary to dehydration vs rhabdomyolysis - Creatinine 1.40 and creatinine kinase 1426 on presentation. -11/19. Resolved. Continue IV fluids for rhabdomyolysis. //Cocaine abuse: Patient was counseled on cessation. Promises to avoid completely in the future.. //Tobacco abuse: Cessation counseling provided. DVT prophylaxis: Low risk and ambulatory. Discharge Planning Will be discharged this date. Needs to follow-up with PCP for labs Needs tyo abstain from cocaine use. Nilo Whipple Jr. DOMONIQUE Nov 20, 2016 12:08
--- NOTE | 2016-11-20 12:16 | HHI.DS ---
Discharge Summary Admission Date Nov 15, 2016 at 13:26 Discharge Date: Nov 20, 2016 Admitting Diagnosis Paranoid Schiz (1) Chronic paranoid schizophrenia ICD Code: F20.0 - Paranoid schizophrenia Diagnosis: Principal Status: Acute (2) Rhabdomyolysis ICD Code: M62.82 - Rhabdomyolysis Diagnosis: Principal (3) Polysubstance abuse ICD Code: F19.10 - Other psychoactive substance abuse, uncomplicated Diagnosis: Secondary Procedures Echocardiogram Brief History - From Admission Mr. Anne is a 26-year-old male patient with a known medical history of paranoid schizophrenia with medication noncompliance and who is homeless presented to the psychiatry unit with suicidal ideation and psychotic symptoms. Hospitalist team has been consulted for medical management regarding abnormal EKG findings. Patient seen and examined in 2700 unit. Patient would not answer any questions regarding his psychiatric admission and states "he is trying to get over what brought him in here". 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 He states that the pain is in his left sternal chest area, denies any radiation of pain and states "it just goes away eventually". Denies any previous cardiac workup. Patient also states that pain if aggravated by movement. No identifiable relieving factors. No reproducible chest pain to palpation. Admits to using cocaine recently and regularly. Denies any recent illness including fever, chills, cough, headache, shortness of breath , ab pain, nausea, vomiting or diarrhea. Denies any current auditory or visual hallucinations at this time. Denies any current chest discomfort. CBC/BMP: 11/20/16 0832 11/20/16 0832 Significant Findings Laboratory Tests Test 11/17/16 19:22 11/18/16 20:09 11/19/16 10:13 11/20/16 08:32 Total Creatine Kinase 1426 U/L (39-308) 1061 U/L (39-308) 800 U/L (39-308) 555 U/L (39-308) Troponin I LESS THAN 0.02 NG/ML LESS THAN 0.02 NG/ML Aspartate Amino Transf (AST/SGOT) 38 U/L (15-37) Lymphocytes # (Auto) 0.9 TH/MM3 (1.0-4.8) Random Glucose 166 MG/DL (74-106) 156 MG/DL (74-106) Phosphorus Level 1.8 MG/DL (2.5-4.9) 2.4 MG/DL (2.5-4.9) Hemoglobin 17.9 GM/DL (13.0-17.0) Hematocrit 53.1 % (39.0-51.0) Neutrophils (%) (Auto) 70.2 % (16.0-70.0) Creatinine 1.35 MG/DL (0.60-1.30) Estimat Glomerular Filtration Rate 76 ML/MIN (>89) PE at Discharge GENERAL: Pt encountered laying a bed. Resting. SKIN: Warm and dry. HEAD: Normocephalic. EYES: No scleral icterus. No injection or drainage. NECK: Supple, trachea midline. No lymphadenopathy. CARDIOVASCULAR: Regular rate and rhythm without murmurs, gallops, or rubs. RESPIRATORY: Breath sounds equal bilaterally. No wheezes rhonchi or crackles. No accessory muscle use. GASTROINTESTINAL: Abdomen soft, non-tender, nondistended. MUSCULOSKELETAL: No cyanosis, or edema. PSYCHIATRIC: Appropriate mood and affect. Patient was pleasant and cooperative. Speech was clear and fluent. Hospital Course Pt admitted to [facility] [place] for psychotic symptoms. The Hospitalist team was consulted on 11/18/16 for changes seen on EKG. Cardiology was consulted and echocardiogram indicated the presence of ejection fraction of 50-55%/ labs indicated the presence of elevated creatine kinase with differential diagnosis of dehydration versus rhabdomyolysis. Pt received IVF and labs were trended. Results indicated mild creatine elevation. Pt Condition on Discharge: Stable Discharge Disposition: Discharge Home Discharge Time: <= 30 minutes Discharge Instructions DIET: Follow Instructions for: As Tolerated, No Restrictions Activities you can perform: Weight Bearing as Reyna Follow up Referrals: PCP Follow-up - 1 Week New Orders: BASIC METABOLIC PROF - 1 Week CREATININE KINASE - 1 Week PHOSPHORUS (PO4) - 1 Week New Medications: Risperidone (Risperdal) 1 Mg Tab 3 MG PO BID for Mental Health for 15 Days, TAB 1 Refill Changed Medications: Carbamazepine (Tegretol) 200 Mg Tab 200 MG PO BID for Mental Health for 15 Days, TAB 1 Refill (Changed from: 200 ; Removed Quantity; Refills: 0) Discontinued Medications: Fluoxetine (Prozac) 10 Mg Cap 20 MG PO DAILY, #30 CAP 0 Refills Risperidone (Risperdal) 0.25 Mg Tab 2 MG PO HS, #30 TAB 0 Refills Nilo Whipple Jr. Nov 20, 2016 12:16
== END 2016-11-20 13:00 | disposition home or self-care (01) | DRG 885 ==
LOC: NEPD 05:16 → NEDA 13:26 → H270 15:05 → H4EA 11-18 13:08
PROVIDERS: ADMIT Psychiatry & Neurology Psychiatry; ATTEND Psychiatry & Neurology Psychiatry
DX: F20.0 Paranoid schizophrenia (principal); N17.9 Acute kidney failure, unspecified; M62.82 Rhabdomyolysis; E86.0 Dehydration; R45.851 Suicidal ideations; Z59.0 Homelessness; Z91.14 Patient's other noncompliance with medication regimen; F14.10 Cocaine abuse, uncomplicated; F17.210 Nicotine dependence, cigarettes, uncomplicated; R94.31 Abnormal electrocardiogram [ECG] [EKG]; R07.89 Other chest pain; Z88.5 Allergy status to narcotic agent
CPT/HCPCS: 71010; 80053; 80061; 80069; 80156; 80307; 82306; 82550; 82552; 82607; 83036; 83735; 84100; 84443; 84484; 85025; 93005; 93306; J1200; J2060; J3486; J7030